=== PATIENT | female | born 1970 | race Caucasian/White ===

== ENCOUNTER 2016-05-24 20:10 | Emergency (ER) | payer MEDICAID ==
[~2016-05-24] VITALS: Ht 157.5 cm; Wt 108.9 kg
[~2016-05-24 20:10] MED LIST: ACHD5005 PO; AZIT250T5 PO; BENZ200C51 PO; CETI10TA17; CODE118S2 PO; CYCL10TA9 PO; DOXY100C42 PO; DULO20CA PO; DULO20CA18; HYDR-1231 PO; HYDR-2890 PO; HYDR-34 PO; HYDR-3454 PO; HYDR-757 PO; HYDR1TAB PO; IBP600T1 PO; KETO-22 PO; MELO7.5T PO; MONT10TA24; NAPR500T3 PO; OMEP20TA2 PO; ONDA-42 SL; ORPH100T PO; ORTHO NOVUM 1/35 PO; OXYC-12 PO; PRD20T PO; PRED20TA PO; TRM50T PO
[2016-05-24] MEDS ORDERED: CETI10TA17 PO (20:28)
[2016-05-24] MEDS ORDERED: FLUT9.9S NS (20:28)
--- NOTE | 2016-05-24 20:48 | ED Headache ---
General Chief Complaint: Head/Cervical Problems Stated Complaint: HEADACHE CHEST PAIN DUE TO COUGH Nursing Triage Note: C/O LATERAL/POSTERIOR HEADACHE RADIATING DOWN NECK SINCE WEDNESDAY. DENIES INJURY. Nursing Sepsis Screen: No Definite Risk Source: patient, spouse Exam Limitations: no limitations History of Present Illness Time seen by provider: 20:48 Initial Comments 46 YO FEMALE PATIENT PRESENTS TO THE ED WITH C/O POSTERIOR/LATERAL HEADACHE RADIATING DOWN THE NECK SINCE WEDNESDAY. DOES C/O PHOTOPHOBIA AND SOUND SENSITIVITY. REPORTS SINUS CONGESTION, SORE THROAT AND COUGH. PATIENT DENIES FEVER, CHILLS, DIZZINESS, N/V/D. Timing/Duration: waxing and waning, other (2-3 DAYS) Severity/Quality: pressure, throbbing Location: occipital, parietal Modifying Factors: worse with exposure to light, worse with other (EXPOSURE TO SOUND) Associated Symptoms: No confusion, No fatigue, No facial pain, No fever/chills , No flushing, No loss of consciousness, No nausea/vomiting, nasal congestion, No numbness in legs/feet, No rash, No sinus infection, stiff neck, vision changes (PHOTOPHOBIA), No weakness Allergies and Home Medications Allergies Coded Allergies: NKANo Known Allergies (Unverified Allergy, Unknown, 11/01/05) Home Medications Cefdinir 300 Mg Capsule, 300 MG PO BID for 10 Days, #20 Ref 0 Prescribed by: FELISA DAVIS on 05/24/16 2310 Cetirizine HCl 10 Mg Tablet, 1 TAB PO UD, #30 (Reported) Fluticasone Propionate 9.9 Ml [place].susp, 9.9 ML NS UD, (Reported) Promethazine HCl/Codeine 118 Ml Syrup, 5 ML PO Q4H PRN for COUGH, #120 Ref 0 Prescribed by: FELISA DAVIS on 05/25/16 0021 Constitutional: No chills, No diaphoresis, No dizziness, No fever, malaise Eyes: See HPI, Denies Blurred Vision, Denies Drainage, Denies Pain, Photophobia , Tunnel Vision, Other ((+) SCATOMAS) Ears, Nose, Mouth, Throat: denies ear pain, denies ear discharge, denies nose pain, denies mouth pain, throat pain, denies throat swelling Respiratory: cough, phlegm, No short of breath, No stridor, No wheezing Cardiovascular: no symptoms reported Gastrointestinal: No abdominal pain, No constipation, No diarrhea, No nausea, No vomiting Genitourinary: no symptoms reported Musculoskeletal: see HPI Skin: no symptoms reported Psychiatric/Neurological: Headache, Denies Numbness, Denies Paresthesia, Denies Tingling, Denies Weakness All Other Systems Reviewed Negative Unless Noted: Yes (Negative except WHERE noted.) Past Ohrmlls-Crueqr-Tvqzag Hx Patient Social History Alcohol Use: Denies Use Recreational Drug Use: No Smoking Status: Never a Smoker 2nd Hand Smoke Exposure: No Recent Foreign Travel: No Contact w/Someone Who Travel: No Recent Infectious Disease Expo: No Recent Hopitalizations: No Immunizations Up To Date Tetanus Booster (TDap): Unknown Date of Influenza Vaccine: Jan 22, 2015 Seasonal Allergies Seasonal Allergies: Yes Surgeries HX Surgeries: Yes (L KNEE) Surgeries: Adenoidectomy, Appendectomy, Orthopedic, Tonsillectomy, Tubal Ligation Respiratory Hx Respiratory Disorders: No Cardiovascular Hx Cardiac Disorders: No (CLEAN HEART CATH IN 2014) Neurological Hx Neurological Disorders: Yes Neurological Disorders: Headaches /Migraines Reproductive System : No Hx Reproductive Disorders: No Sexually Transmitted Disease: No TRANSITION RN History: Tubal Ligation Genitourinary Hx Genitourinary Disorders: No Gastrointestinal Hx Gastrointestinal Disorders: Yes Gastrointestinal Disorders: Gastroesophageal Reflux Musculoskeletal Hx Musculoskeletal Disorders: No Endocrine Hx Endocrine Disorders: No HEENT HX ENT Disorders: No Cancer Hx Cancer: No Psychosocial Hx Psychiatric Problems: Yes Behavioral Health Disorders: Depression Integumentary HX Skin/Integumentary Disorder: No Blood Transfusions Hx Blood Disorders: No Reviewed Nursing Assessment Reviewed/Agree w Nursing PMH: Yes Family Medical History Significant Family History: No Pertinent Family Hx Physical Exam Vital Signs Vital Sign - Last 12Hours 05/24/16 20:29 Temp 99.3 Pulse 73 Resp 18 B/P (MAP) 185/106 Pulse Ox 93 O2 Delivery Room Air Capillary Refill : Less Than 3 Seconds General Appearance: WD/WN, no apparent distress HEENT: PERRL/EOMI, normal ENT inspection, TMs normal, photophobia, pharyngeal erythema, other ((+) NASAL CONGESTION. SINUSES NONTENDER.) Neck: full range of motion, supple, normal inspection, No limited range of motion, tender lateral, No tender midline Cardiovascular: normal peripheral pulses, regular rate, rhythm, no murmur Respiratory: lungs clear, normal breath sounds, no respiratory distress Gastrointestinal: normal bowel sounds, non tender, soft, No distended Back: normal inspection Extremities: normal inspection, normal capillary refill Psychiatric: alert, oriented x 3 Crainal Nerves: normal hearing, normal speech, PERRL Coordination/Gait: normal finger to nose, normal gait, negative Romberg's sign Motor/Sensory: no motor deficit, no sensory deficit, no pronator drift Skin: normal color, warm/dry Progress/Results/Core Measures Results/Orders Lab Results Laboratory Tests Test 05/24/16 23:38 Range/Units White Blood Count 10.3 4.3-11.0 10^3/uL Red Blood Count 5.18 4.35-5.85 10^6/uL Hemoglobin 12.8 11.5-16.0 G/DL Hematocrit 39 35-52 % Mean Corpuscular Volume 75 L 80-99 FL Mean Corpuscular Hemoglobin 25 25-34 PG Mean Corpuscular Hemoglobin Concent 33 32-36 G/DL Red Cell Distribution Width 15.4 H 10.0-14.5 % Platelet Count 301 130-400 10^3/uL Mean Platelet Volume 10.2 7.4-10.4 FL Neutrophils (%) (Auto) 58 42-75 % Lymphocytes (%) (Auto) 29 12-44 % Monocytes (%) (Auto) 9 0-12 % Eosinophils (%) (Auto) 4 0-10 % Basophils (%) (Auto) 1 0-10 % Neutrophils # (Auto) 6.0 1.8-7.8 X 10^3 Lymphocytes # (Auto) 2.9 1.0-4.0 X 10^3 Monocytes # (Auto) 1.0 0.0-1.0 X 10^3 Eosinophils # (Auto) 0.4 H 0.0-0.3 10^3/uL Basophils # (Auto) 0.1 0.0-0.1 10^3/uL Sodium Level 137 135-145 MMOL/L Potassium Level 4.1 3.6-5.0 MMOL/L Chloride Level 108 H 98-107 MMOL/L Carbon Dioxide Level 21 21-32 MMOL/L Anion Gap 8 5-14 MMOL/L Blood Urea Nitrogen 15 7-18 MG/DL Creatinine 0.78 0.60-1.30 MG/DL Estimat Glomerular Filtration Rate > 60 BUN/Creatinine Ratio 19 Glucose Level 98 70-105 MG/DL Calcium Level 9.0 8.5-10.1 MG/DL Total Bilirubin 0.3 0.1-1.0 MG/DL Aspartate Amino Transf (AST/SGOT) 16 5-34 U/L Alanine Aminotransferase (ALT/SGPT) 15 0-55 U/L Alkaline Phosphatase 80 40-136 U/L C-Reactive Protein High Sensitivity 1.95 H 0.00-0.50 MG/DL Total Protein 7.3 6.4-8.2 G/DL Albumin 4.0 3.2-4.5 G/DL Micro Results Microbiology 05/24/16 Influenza Types A,B Antigen (KARL) - Final, Complete My Orders Orders - FELISA DAVIS Ketorolac Injection (Toradol Injection) (05/24/16 20:59) Orphenadrine Injection (Norflex Injectio (05/24/16 20:59) Diphenhydramine Tablet (Benadryl Tablet) (05/24/16 21:00) Ondansetron Oral Dissolve Tab (Zofran (05/24/16 20:59) Ct Head Wo (05/24/16 22:17) Hydrocodone/Apap 10/325 Tablet (Lortab 1 (05/24/16 22:17) Cbc With Automated Diff (05/24/16 23:20) Comprehensive Metabolic Panel (05/24/16 23:20) Hs C Reactive Protein (05/24/16 23:20) Saline Lock/Iv-Start (05/24/16 23:20) Fentanyl Injection (Sublimaze Injection (05/24/16 23:20) Ns Iv 1000 Ml (Sodium Chloride 0.9%) (05/24/16 23:20) Methylprednisolone Sod Succ (Solu-Medrol (05/24/16 23:20) Medications Given in ED Current Medications Medications Dose Ordered Sig/Kindra Route Start Time Stop Time Status Last Admin Dose Admin Diphenhydramine HCl 25 mg ONCE ONCE PO 05/24/16 21:00 05/24/16 21:01 DC 05/24/16 21:18 25 MG Sodium Chloride 1,000 ml @ 0 mls/hr Q0M ONCE IV 05/24/16 23:20 05/24/16 23:24 DC 05/24/16 23:32 0 MLS/HR Vital Signs/I&O Vital Sign - Last 12Hours 05/24/16 20:29 Temp 99.3 Pulse 73 Resp 18 B/P (MAP) 185/106 Pulse Ox 93 O2 Delivery Room Air Blood Pressure Mean: 132 Diagnostic Imaging Diagonstic Imaging: Xray Plain Films/CT/US/NM/MRI: chest Comments Heart size and pulmonary vascularity are normal. Lungs are clear. There are no effusions or pneumothoraces. IMPRESSION: Negative chest Dictated by: Dictated on workstation # [id number] Reviewed: Reviewed by Me (radiology report reviewed by me) Diagonstic Imaging: CT Plain Films/CT/US/NM/MRI: head Comments NO MASS EFFECT, ICH, OR EDEMA. NO EVIDENCE OF ACUTE CORTICAL STROKE. AREAS OF MILD MUCOSAL THICKENING IN THE PARANASAL SINUSES. Reviewed: Other ([facility] REPORT REVIEWED BY ME.) Departure Communication Progress Notes PATIENT SEEN AND EVALUATED. PATIENT WAS GIVEN TORADOL, NORFLEX, BENADRYL, ZOFRAN, AND HYDROCODONE WITHOUT IMPROVEMENT IN SYMPTOMS. CT SCAN OF THE HEAD, CXR, AND INFLUENZA NEGATIVE. PATIENT CONTINUED TO C/O A 9/10 HEADACHE. IV WAS THEN STARTED AND PATIENT WAS GIVEN 1 L NS AND FENTANYL. PATIENT REPORTS PAIN IMPROVED TO A 1/10. OVERALL FEELS MUCH BETTER. PROCEED WITH [facility] TO HOME. ALL RETURN PRECAUTIONS WERE DISCUSSED WITH THE PATIENT DESCRIBED IN THE [facility] INSTRUCTIONS OF THIS REPORT. PATIENT VOICES UNDERSTANDING AND AGREES WITH THE TREATMENT PLAN. Impression Impression: Primary Impression: Migraine Qualified Codes: G43.909 - Migraine, unspecified, not intractable, without status migrainosus Additional Impression: Sinusitis Qualified Codes: J01.90 - Acute sinusitis, unspecified Disposition: HOME, SELF-CARE Condition: Improved Departure-Patient Inst. Decision time for Depature: 00:22 Referrals: АННА CONSTANTINO (PCP) Primary Care Physician Patient Instructions: Migraine Headache (DC), Sinusitis, Adult (DC) Add. Discharge Instructions: All discharge instructions reviewed with patient and/or family. Voiced understanding. Medications as instructed. Tylenol Extra Strength over-the- counter as directed for pain. Ibuprofen 800 mg by mouth every 8 hours as needed for pain. Push fluids. Cool humidifier. Mmfk-gyz-dumqyir decongestants and antihistamines as needed for symptoms. Rest. Follow-up with your primary care physician for recheck in the next 2-3 days, call for appointment time tomorrow morning. Return to the emergency department for worsened pain, fever, headache, dizziness, changes in behavior, changes in vision, shortness of air, numbness, weakness, decreased urination, or any other concerns. Scripts Promethazine HCl/Codeine (Promethazine-Codeine Syrup) 118 Ml Syrup 5 ML PO Q4H Y for COUGH, #120 ML 0 Refills Prov: FELISA DAVIS 05/25/16 Cefdinir (Cefdinir) 300 Mg Capsule 300 MG PO BID for 10 Days, #20 CAP 0 Refills Prov: FELISA DAVIS 05/24/16 FELISA DAVIS May 24, 2016 20:48
[2016-05-24] MEDS ORDERED: KETOROLAC 60 MG/2 ML VIAL IM STA (20:59)
[2016-05-24] MEDS ORDERED: ORPHENADRINE 60 MG/2 ML (NORFLEX) AMP IM STA (20:59)
[2016-05-24] MEDS ORDERED: ONDANSETRON 4 MG (ZOFRAN) ORAL DISSOLVE TAB SL STA (20:59)
[2016-05-24] MEDS ORDERED: diphenhydrAMINE 25 MG TAB (BENADRYL) PO ONE (21:00)
--- NOTE | 2016-05-24 21:10 | Diagnostic Imaging Report ---
INDICATION: Cough and congestion, asymmetric chest pain x2 days PA and lateral chest Heart size and pulmonary vascularity are normal. Lungs are clear. There are no effusions or pneumothoraces. IMPRESSION: Negative chest Dictated by: Dictated on workstation # [id number]
[2016-05-24] MEDS ORDERED: HYDROcodone/APAP 10 MG/325 MG (LORTAB) TAB PO STA (22:17)
[2016-05-24] MEDS ORDERED: CEFD300C3 PO (23:10)
[2016-05-24] MEDS ORDERED: NS IV 1000 ML 1,000 ML IV ONE (23:20)
[2016-05-24] MEDS ORDERED: fentaNYL INJECTION 100 MCG/2 ML AMP IVP STA (23:20)
[2016-05-24] MEDS ORDERED: methylPREDNISolone 125 MG (Solu-MEDROL) VIAL IV STA (23:20)
[2016-05-24 23:41] LABS: BASOPHILS # (AUTO) 0.1 10^3/uL (0.0-0.1); BASOPHILS % (AUTO) 1 % (0-10); EOSINOPHILS # (AUTO) 0.4 10^3/uL (0.0-0.3); EOSINOPHILS % (AUTO) 4 % (0-10); LYMPHOCYTES # (AUTO) 2.9 X 10^3 (1.0-4.0); LYMPHOCYTES % (AUTO) 29 % (12-44); MEAN CORPUSCULAR HEMOGLOBIN 25 PG (25-34); MEAN CORPUSCULAR HGB CONC 33 G/DL (32-36); MEAN CORPUSCULAR VOLUME 75 FL (80-99); MEAN PLATELET VOLUME 10.2 FL (7.4-10.4); MONOCYTES % (AUTO) 9 % (0-12); NEUTROPHILS % (AUTO) 58 % (42-75); PLATELET COUNT 301 10^3/uL (130-400); RED BLOOD COUNT 5.18 10^6/uL (4.35-5.85); RED CELL DISTRIBUTION WIDTH 15.4 % (10.0-14.5); WHITE BLOOD COUNT 10.3 10^3/uL (4.3-11.0)
[2016-05-25 00:01] LABS: ALANINE AMINOTRANSFERASE 15 U/L (0-55); ANION GAP 8 MMOL/L (5-14); ASPARTATE AMINO TRANSFERASE 16 U/L (5-34); BILIRUBIN,TOTAL 0.3 MG/DL (0.1-1.0); BLOOD UREA NITROGEN 15 MG/DL (7-18); BUN/CREATININE RATIO 19; CARBON DIOXIDE 21 MMOL/L (21-32); CHLORIDE 108 MMOL/L (98-107); CREATININE SERUM 0.78 MG/DL (0.60-1.30); GFR ESTIMATED > 60; GLUCOSE 98 MG/DL (70-105); POTASSIUM 4.1 MMOL/L (3.6-5.0); SODIUM 137 MMOL/L (135-145); TOTAL PROTEIN 7.3 G/DL (6.4-8.2); hs C REACTIVE PROTEIN 1.95 MG/DL (0.00-0.50)
[2016-05-25] MEDS ORDERED: CODE118S2 PO (00:21)
[2016-05-25 00:31] VITALS: BP 132/93
--- NOTE | 2016-05-25 05:53 | Diagnostic Imaging Report ---
PROCEDURE: CT head without contrast. TECHNIQUE: Multiple contiguous axial images were obtained through the brain without the use of intravenous contrast. INDICATION: Headache. COMPARISON: 05/21/2015 FINDINGS: There is no midline shift or mass effect. The ventricles and sulci are unremarkable. No evidence for acute intracranial hemorrhage, abnormal extra-axial fluid collections or cerebral edema is present. The basilar cisterns are unremarkable. There is mild mucosal thickening in the paranasal sinuses.. The bony calvarium is intact. IMPRESSION: Negative appearing noncontrast CT of the head. Dictated by: Dictated on workstation # [id number]
--- OUTSIDE RECORDS SUMMARY | 2016-06-28 04:28 | XMS REPORT ---
Author Author АННА CONSTANTINO Organization [employer] Address Unknown Phone Unavailable Care Team Providers Care Guyline Operator Name Role Phone АННА CONSTANTINO CP Unavailable Allergies No Known Allergies Problems Problem Type Condition Code Onset Dates Condition Status Problem Hypertension 401.9 Active Problem Disturbance of skin sensation 782.0 Active Problem Reactive airway disease 493.90 Active Problem Acute upper respiratory infections of unspecified site 465.9 Active Problem Esophageal reflux 530.81 Active Medications No Known Medications Results No Known Results Summary Purpose [employer] Submission
--- OUTSIDE RECORDS SUMMARY | 2016-06-28 04:28 | XMS REPORT ---
Author Author АННА CONSTANTINO [facility] [employer] Address Unknown Phone Unavailable Care Team Providers Care Tuyere Fitter Name Role Phone АННА CONSTANTINO CP Unavailable Allergies, Adverse Reactions, Alerts Substance Reaction Event Type N.K.D.A. Info Not Available Non Drug Allergy Problems Problem Type Condition ICD-9 Code Onset Dates Condition Status Problem Hypertension 401.9 Active Problem Disturbance of skin sensation 782.0 Active Problem Reactive airway disease 493.90 Active Assessment Reactive airway disease 493.90 Active Assessment Snoring 786.09 Active Problem Acute upper respiratory infections of unspecified site 465.9 Active Problem Esophageal reflux 530.81 Active Medications Medication Code System Code Instructions Start Date End Date Status Dosage ZyrTEC [facility] [address]-89 10 MG Orally Once a day Oct 18, 2014 Feb 15, 2015 1 tablet as needed Promethazine-Codeine [facility] [address]-75 6.25-10 mg/5 mL Feb 07, 2014 5 mL by Oral route every 4 hours for 5 day(s) Singulair [facility] [address]-57 10 MG Orally Once a day at PM Oct 18, 2014 1 tablet in the evening Symbicort [facility] [address]-11 160-4.5 MCG/ACT Inhalation Twice a day Oct 18, 2014 Feb 15, 2015 1 puffs Tessalon Perles [facility] [address]-60 100 MG Orally Three times a day 1 capsule as needed Doxycycline Monohydrate [facility] [address]-44 100 MG Orally every 12 hrs for 10 DAYS 1 capsule Cymbalta [facility] [address]-30 20 MG Orally Twice a day 1 capsule Procedures Procedure Coding System Code Date Office Visit, Est Pt., Level 3 CPT-4 89369 Oct 18, 2014 SLEEP STUDY, UNATTENDED CPT-4 84883 Oct 18, 2014 Vital Signs Date/Time: Oct 18, 2014 Temperature 97.9 F Weight 232.6 lbs Height 62 in BMI 42.54 Index Blood Pressure Diastolic 78 mmHg Blood Pressure Systolic 130 mmHg Cardiac Monitoring Heart Rate 84 bpm Results No Known Results Summary Purpose [employer] Submission
--- OUTSIDE RECORDS SUMMARY | 2016-06-28 04:28 | XMS REPORT ---
Author Author АННА CONSTANTINO Organization [employer] Address Unknown Phone Unavailable Care Team Providers Care Global Compensation Manager Name Role Phone АННА CONSTANTINO CP Unavailable [...]
--- OUTSIDE RECORDS SUMMARY | 2016-06-28 04:28 | XMS REPORT ---
Author Author RACHELLE JOHNSON Organization [facility] Address [address] [place] [address] Care Team Providers Care Java Application Developer Name Role Phone ALEX RACHELLE Unavailable PROBLEMS Type Condition ICD9-CM Code [id number] Code Onset Dates Condition Status SNOMED Code Problem Reactive airway disease 493.90 Active 060546171005 Problem Hypertension 401.9 Active 33188933 Problem Esophageal reflux 530.81 Active 352221723 Assessment Strain of right Achilles tendon, initial encounter S86.011A Oct, Active 01500928 Problem Disturbance of skin sensation 782.0 Active 992931327 Problem Acute upper respiratory infections of unspecified site 465.9 Active [id number] ALLERGIES Substance Reaction Event Type Date Status N.K.D.A. Unknown Non Drug Allergy Oct, Unknown SOCIAL HISTORY No smoking Hx information available PLAN OF CARE VITAL SIGNS Height 62 in 2015-11-05 Weight 236.6 lbs 2015-11-05 Heart Rate 72 bpm 2015-11-05 Respiratory Rate 18 2015-11-05 BMI 43.27 kg/m2 2015-11-05 Blood pressure systolic 128 mmHg 2015-11-05 Blood pressure diastolic 90 mmHg 2015-11-05 MEDICATIONS Medication Instructions Dosage Frequency Start Date End Date Duration Status Ibuprofen 800 MG Orally every 8 hours, PRN 1 tablet Oct,Oct 10 days Active RESULTS Name Result Date Reference Range Xray : Ankle, Right 3 views (IN HOUSE) 2015-11-05 PROCEDURES Procedure Date Ordered Related Diagnosis Body Site X-RAY EXAM OF ANKLE Nov 05, 2015 Office Visit, Est Pt., Level 3 Nov 05, 2015 IMMUNIZATIONS No Known Immunizations
--- OUTSIDE RECORDS SUMMARY | 2016-06-28 04:28 | XMS REPORT ---
Author Author НАНА CONSTANTINO Organization [employer] Address Unknown Phone Unavailable Care Team Providers Care Cloth Grader Supervisor Name Role Phone АННА CONSTANTINO CP Unavailable Allergies No Known Allergies Problems Problem Type Condition ICD-9 Code Onset Dates Condition Status Problem Hypertension 401.9 Active Problem Disturbance of skin sensation 782.0 Active Problem Reactive airway disease 493.90 Active Problem Acute upper respiratory infections of unspecified site 465.9 Active Problem Esophageal reflux 530.81 Active Medications Medication Code System Code Instructions Start Date End Date Status Dosage Symbicort [facility] [address]-51 80-4.5 MCG/ACT Inhalation 2 times a day Oct 2 puffs Results No Known Results Summary Purpose [employer] Submission
--- OUTSIDE RECORDS SUMMARY | 2016-06-28 04:28 | XMS REPORT | Continuity of Care Document ---
Author Author [facility] Address Unknown Phone Unavailable Allergies Active Description Code Type Severity Reaction Onset Reported/Identified Relationship to Patient Clinical Status Yes NKANo Known Allergies NKA Miscellaneous Allergy Unknown N/ A 11/01/2005 Medications Problems Date Dx Coded Attending Type Code Diagnosis Diagnosed By 01/17/2010 Ot 844.9 01/17/2010 Ot 921.1 01/17/2010 Ot 959.7 01/17/2010 Ot E000.8 01/17/2010 Ot E849.0 01/17/2010 Ot E888.9 05/20/2010 Ot 786.52 05/20/2010 Ot 786.59 07/13/2010 Ot 521.00 07/13/2010 Ot 525.9 09/10/2010 Ot 844.9 09/10/2010 Ot 959.7 09/10/2010 Ot E000.8 09/10/2010 Ot E001.1 09/10/2010 Ot E849.6 09/10/2010 Ot E927.0 11/13/2010 GOPAL YADAV APRN R 623.5 LEUKORRHEA NOT SPECIFIED INFECTIVE 11/13/2010 GOPAL YADAV APRN R V72.31 LANDSCAPE FOREMAN EXAM, ROUTINE 11/13/2010 VIJAYA DIAZ APRN 623.5 LEUKORRHEA NOT SPECIFIED INFECTIVE 11/13/2010 VIJAYA DIAZ APRN V72.31 LANDSCAPE FOREMAN EXAM, ROUTINE 11/13/2010 АННА CONSTANTINO APRN S 623.5 LEUKORRHEA NOT SPECIFIED INFECTIVE 11/13/2010 АННА CONSTANTINO APRN S V72.31 LANDSCAPE FOREMAN EXAM, ROUTINE 11/13/2010 АННА CONSTANTINO APRN S 623.5 LEUKORRHEA NOT SPECIFIED INFECTIVE 11/13/2010 АННА CONSTANTINO APRN S V72.31 LANDSCAPE FOREMAN EXAM, ROUTINE 11/19/2010 GOPAL YADAV APRN R 278.01 OBESITY MORBID 11/19/2010 YADAV SHOELACE TIPPING MACHINE OPERATOR, GOPAL R 626.8 DYSFUNCTIONAL UTERINE BLEEDING 11/19/2010 EMILY COSTA VIJAYA T 278.01 OBESITY MORBID 11/19/2010 VIJAYA DIAZ APRN T 626.8 DYSFUNCTIONAL UTERINE BLEEDING 11/19/2010 DOUGIE ANNN, АННА S 278.01 OBESITY MORBID 11/19/2010 DOUGIE ANNN, АННА S 626.8 DYSFUNCTIONAL UTERINE BLEEDING 11/19/2010 DOUGIE SHOELACE TIPPING MACHINE OPERATOR, АННА S 278.01 OBESITY MORBID 11/19/2010 DOUGIE ANNN, АННА S 626.8 DYSFUNCTIONAL UTERINE BLEEDING 05/08/2011 Ot 784.0 05/08/2011 Ot 847.0 05/08/2011 Ot 959.09 05/08/2011 Ot E000.8 05/08/2011 Ot E812.1 08/02/2013 GOPAL YADAV APRN R 782.0 DISTURBANCE OF SKIN SENSATION 08/02/2013 EMILY COSTA VIJAYA T 782.0 DISTURBANCE OF SKIN SENSATION 08/02/2013 DOUGIE SHOELACE TIPPING MACHINE OPERATOR, АННА S 782.0 DISTURBANCE OF SKIN SENSATION 08/02/2013 DOUGIE SHOELACE TIPPING MACHINE OPERATOR, АННА S 782.0 DISTURBANCE OF SKIN SENSATION 08/15/2013 ALIYAH YOANDY HERNANDEZA K Ot 625.3 08/15/2013 ALIYAH HERNANDEZ, GOPAL K Ot 626.8 02/07/2014 EMILY JULISSAVIJAYA T 465.9 UPPER RESPIRATORY INFECTION 02/07/2014 DOUGIE SHOELACE TIPPING MACHINE OPERATOR, АННА S 465.9 UPPER RESPIRATORY INFECTION 02/07/2014 DOUGIE SHOELACE TIPPING MACHINE OPERATOR, АННА S 465.9 UPPER RESPIRATORY INFECTION 04/16/2014 DOUGIE ANNN, АННА S 530.81 GERD 04/16/2014 DOUGIE SHOELACE TIPPING MACHINE OPERATOR, АННА S 530.81 GERD 06/12/2014 DOUGIE COSTA, АННА S 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 06/12/2014 DOUGIE COSTA, АННА S 719.46 PAIN- KNEE 06/14/2014 Ot 626.8 06/14/2014 DEEPIKA PIERRE MD Ot 786.50 06/14/2014 DEEPIKA PIERRE MD Ot 786.59 06/14/2014 Ot 626.8 06/20/2014 Ot 626.8 06/27/2014 MELISSA RICHMOND, RAFAEL Gutierrez Ot 278.01 06/27/2014 MELISSA RICHMOND, RAFAEL Gutierrez Ot 338.4 06/27/2014 MELISSA RICHMOND, RAFAEL Gutierrez Ot 346.90 06/27/2014 MELISSA RICHMOND, RAFAEL Gutierrez Ot 401.9 06/27/2014 MELISSA RICHMOND, RAFAEL Gutierrez Ot 414.01 06/27/2014 MELISSA RICHMOND, RAFAEL Gutierrez Ot 786.50 06/27/2014 MELISSA RICHMOND, RAFAEL Gutierrez Ot 794.30 06/27/2014 MELISSA RICHMOND, RAFAEL Gutierrez Ot V58.69 06/27/2014 MELISSA RICHMOND, RAFAEL Gutierrez Ot V85.41 07/21/2014 MELISSA RICHMOND, RAFAEL Gutierrez Ot 278.01 07/21/2014 MELISSA RICHMOND, RAFAEL Gutierrez Ot 346.70 07/21/2014 MELISSA RICHMOND, RAFAEL Gutierrez Ot 786.50 10/02/2014 NORIS ROBISON MD Ot 465.9 10/02/2014 NORIS ROBISON MD Ot 786.2 10/02/2014 Ot 626.8 10/02/2014 MELISSA RICHMOND, RAFAEL Gutierrez Ot 278.01 10/02/2014 MELISSA RICHMOND, RAFAEL Gutierrez Ot 346.70 10/02/2014 MELISSA RICHMOND, RAFAEL Gutierrez Ot 786.50 10/08/2014 Ot 626.8 10/08/2014 MELISSA RICHMOND, RAFAEL Gutierrez Ot 278.01 10/08/2014 RAFAEL TORRES MD Ot 346.70 10/08/2014 RAFAEL TORRES MD Ot 786.50 10/17/2014 GOPAL LY DO Ot 466.0 10/17/2014 GOPAL LY DO Ot 786.2 12/07/2014 Ot T63.301A 12/07/2014 Ot X58.XXXA 12/07/2014 Ot Y92.69 12/07/2014 Ot Y99.0 12/07/2014 Ot Z23 12/10/2014 MOY TERRY APRN Ot M79.632 02/18/2015 GOPAL LY DO Ot S30.0XXA 02/18/2015 GOPAL LY DO Ot S70.01XA 02/18/2015 GOPAL LY DO Ot W10.9XXA 02/18/2015 ALIYAHGOPAL Luevano DO Ot Y92.009 02/18/2015 ALIYAH HERNANDEZ, GOPAL Covarrubias Ot Y99.8 05/22/2015 FELISA ORELLANA Ot J06.9 ACUTE UPPER RESPIRATORY INFECTION, UNSPE 05/22/2015 FELISA ORELLANA Ot R51 HEADACHE 05/22/2015 FELISA ORELLANA Ot J06.9 05/22/2015 FELISA ORELLANA Ot R51 12/08/2015 BRIANA RICHMOND, LUPILLO De La Paz Ot M79.661 PAIN IN RIGHT LOWER LEG 12/10/2015 LUPILLO WARREN MD Ot M79.661 PAIN IN RIGHT LOWER LEG 12/12/2015 BRIANA RICHMOND, LUPILLO S Ot M79.661 PAIN IN RIGHT LOWER LEG 01/10/2016 АННА CONSTANTINO FILM MAKER Ot Z12.31 ENCNTR SCREEN MAMMOGRAM FOR MALIGNANT NE 01/23/2016 АННА CONSTANTINO FILM MAKER Ot Z12.31 ENCNTR SCREEN MAMMOGRAM FOR MALIGNANT NE 01/30/2016 АННА CONSTANTINO FILM MAKER Ot R92.8 OTH ABN AND INCONCLUSIVE FINDINGS ON DX 01/30/2016 DOUGIEANAYA BREENA FILM MAKER Ot R92.8 OTH ABN AND INCONCLUSIVE FINDINGS ON DX 02/20/2016 DOUGIEANAYA BREENA FILM MAKER Ot R92.8 OTH ABN AND INCONCLUSIVE FINDINGS ON DX 05/25/2016 FELISA ORELLANA Ot G43.909 MIGRAINE, UNSP, NOT INTRACTABLE, WITHOUT 05/25/2016 FELISA ORELLANA Ot J01.90 ACUTE SINUSITIS, UNSPECIFIED 05/25/2016 FELISA ORELLANA Ot R51 HEADACHE 05/26/2016 FELISA ORELLANA Ot G43.909 MIGRAINE, UNSP, NOT INTRACTABLE, WITHOUT 05/26/2016 FELISA ORELLANA Ot J01.90 ACUTE SINUSITIS, UNSPECIFIED 05/26/2016 FELISA ORELLANA Ot R51 HEADACHE Procedures Code Description Performed By [facility]formed [facility] 08/02/2013 91803 INFLUENZA A & B (IN-HOUSE) 02/07/2014 80831 XRAY KNEE LEFT 3 VIEWS 06/15/2014 Results Test Result Range Complete blood count (CBC) with automated white blood cell (WBC) differential - 12/08/15 10:16 Blood leukocytes automated count (number/volume) 9.8 10*3/ uL 4.3-11.0 Blood erythrocytes automated count (number/volume) 5.07 10*6 /uL 4.35-5.85 Venous blood hemoglobin measurement (mass/volume) 12.6 g/dL 11.5-16.0 Blood hematocrit (volume fraction) 38 % 35-52 Automated erythrocyte mean corpuscular volume 75 [foz_us] 80-99 Automated erythrocyte mean corpuscular hemoglobin (mass per erythrocyte) 25 pg 25-34 Automated erythrocyte mean corpuscular hemoglobin concentration measurement ( mass/volume) 33 g/dL 32-36 Automated erythrocyte distribution width ratio 15.2 % 10.0-14.5 Automated blood platelet count (count/volume) 314 10*3/uL 130-400 Automated blood platelet mean volume measurement 10.8 [foz_ us] 7.4-10.4 Automated blood neutrophils/100 leukocytes 58 % 42-75 Automated blood lymphocytes/100 leukocytes 30 % 12-44 Blood monocytes/100 leukocytes 8 % 0-12 Automated blood eosinophils/100 leukocytes 4 % 0-10 Automated blood basophils/100 leukocytes 1 % 0-10 Blood neutrophils automated count (number/volume) 5.7 10*3 1.8-7.8 Blood lymphocytes automated count (number/volume) 2.9 10*3 1.0-4.0 Blood monocytes automated count (number/volume) 0.8 10*3 0.0-1.0 Automated eosinophil count 0.3 10*3/uL 0.0-0.3 Automated blood basophil count (count/volume) 0.1 10*3/uL 0.0-0.1 PT panel in platelet poor plasma by coagulation assay - 12/08/15 10:16 Prothrombin time (PT) in platelet poor plasma by coagulation assay 13.3 s 12.2-14.7 INR in platelet poor plasma or blood by coagulation assay 1.0 0.8-1.4 Influenza virus A and B antigen detection - 05/24/16 20:35 FLU RESULT NEGATIVE FOR INFLUENZA A AND B ANTIGENS BY [facility] Complete blood count (CBC) with automated white blood cell (WBC) differential - 05/24/16 23:38 Blood leukocytes automated count (number/volume) 10.3 10*3/ uL 4.3-11.0 Blood erythrocytes automated count (number/volume) 5.18 10*6 /uL 4.35-5.85 Venous blood hemoglobin measurement (mass/volume) 12.8 g/dL 11.5-16.0 Blood hematocrit (volume fraction) 39 % 35-52 Automated erythrocyte mean corpuscular volume 75 [foz_us] 80-99 Automated erythrocyte mean corpuscular hemoglobin (mass per erythrocyte) 25 pg 25-34 Automated erythrocyte mean corpuscular hemoglobin concentration measurement ( mass/volume) 33 g/dL 32-36 Automated erythrocyte distribution width ratio 15.4 % 10.0-14.5 Automated blood platelet count (count/volume) 301 10*3/uL 130-400 Automated blood platelet mean volume measurement 10.2 [foz_ us] 7.4-10.4 Automated blood neutrophils/100 leukocytes 58 % 42-75 Automated blood lymphocytes/100 leukocytes 29 % 12-44 Blood monocytes/100 leukocytes 9 % 0-12 Automated blood eosinophils/100 leukocytes 4 % 0-10 Automated blood basophils/100 leukocytes 1 % 0-10 Blood neutrophils automated count (number/volume) 6.0 10*3 1.8-7.8 Blood lymphocytes automated count (number/volume) 2.9 10*3 1.0-4.0 Blood monocytes automated count (number/volume) 1.0 10*3 0.0-1.0 Automated eosinophil count 0.4 10*3/uL 0.0-0.3 Automated blood basophil count (count/volume) 0.1 10*3/uL 0.0-0.1 Comprehensive metabolic panel - 05/24/16 23:38 Serum or plasma sodium measurement (moles/volume) 137 mmol/ L 135-145 Serum or plasma potassium measurement (moles/volume) 4.1 mmol/L 3.6-5.0 Serum or plasma chloride measurement (moles/volume) 108 mmol /L 98-107 Carbon dioxide 21 mmol/L 21-32 Serum or plasma anion gap determination (moles/volume) 8 mmol/L 5-14 Serum or plasma urea nitrogen measurement (mass/volume) 15 mg/dL 7-18 Serum or plasma creatinine measurement (mass/volume) 0.78 mg /dL 0.60-1.30 Serum or plasma urea nitrogen/creatinine mass ratio 19 NRG Serum or plasma creatinine measurement with calculation of estimated glomerular filtration rate > NRG Serum or plasma glucose measurement (mass/volume) 98 mg/dL 70-105 Serum or plasma calcium measurement (mass/volume) 9.0 mg/dL 8.5-10.1 Serum or plasma total bilirubin measurement (mass/volume) 0.3 mg/dL 0.1-1.0 Serum or plasma alkaline phosphatase measurement (enzymatic activity/volume) 80 U/L 40-136 Serum or plasma aspartate aminotransferase measurement (enzymatic activity/ volume) 16 U/L 5-34 Serum or plasma alanine aminotransferase measurement (enzymatic activity/volume ) 15 U/L 0-55 Serum or plasma protein measurement (mass/volume) 7.3 g/dL 6.4-8.2 Serum or plasma albumin measurement (mass/volume) 4.0 g/dL 3.2-4.5 Serum or plasma C reactive protein measurement (mass/volume) - 05/24/16 23:38 Serum or plasma C reactive protein measurement (mass/volume) 1.95 mg/dL 0.00-0.50 Encounters ACCT No. Visit Date/Time Discharge Status Pt. Type Provider Facility Loc./Unit Complaint [id number] 06/12/2014 08:41:00 06/12/2014 23: 59:59 CLS Outpatient АННА CONSTANTINO APRN [id number] 04/16/2014 11:48:00 04/16/2014 23: 59:59 CLS Outpatient АННА CONSTANTINO APRN [id number] 02/07/2014 18:11:00 02/07/2014 23: 59:59 CLS Outpatient VIJAYA DIAZ APRN [id number] 08/02/2013 12:12:00 08/02/2013 23: 59:59 CLS Outpatient GOPAL YADAV APRN
--- OUTSIDE RECORDS SUMMARY | 2016-06-28 04:28 | XMS REPORT ---
Author Author ALYSSA LEMUS [facility] eClinicalWorks Address Unknown Phone Unavailable Care Team Providers Care Customer Manager Name Role Phone ALYSSA LEMUS CP Unavailable Allergies, Adverse Reactions, Alerts Substance Reaction Event Type N.K.D.A. Info Not Available Non Drug Allergy Problems Problem Type Condition ICD-9 Code Onset Dates Condition Status Problem Hypertension 401.9 Active Problem Disturbance of skin sensation 782.0 Active Problem Reactive airway disease 493.90 Active Assessment Bronchiolitis 466.19 Active Problem Acute upper respiratory infections of unspecified site 465.9 Active Problem Esophageal reflux 530.81 Active Medications Medication Code System Code Instructions Start Date End Date Status Dosage Levaquin [facility] [address]-69 500 MG Orally Once a day Nov 01, 2014Oct 1 tablet PredniSONE [facility] [address]-24 10 MG Orally Twice a day Nov 01, 2014 Nov 08, 2014 1 tablet with food or milk ProAir HFA [facility] [address]-65 108 (90 Base) MCG/ACT Inhalation 3 times a day Nov 01, 2014 2 puffs as needed Singulair [facility] [address]-01 10 MG Orally Once a day at PM Oct 18, 2014 1 tablet in the evening Symbicort [facility] [address]-87 80-4.5 MCG/ACT Inhalation 2 times a day Oct 2 puffs ZyrTEC [facility] [address]-81 10 MG Orally Once a day Oct 18, 2014 Feb 15, 2015 1 tablet as needed Cymbalta [facility] [address]-59 20 MG Orally Twice a day 1 capsule Procedures Procedure Coding System Code Date COMPLETE CBC W/AUTO DIFF WBC CPT-4 72729 Nov 01, 2014 MYCOPLASMA ANTIBODY CPT-4 55775 Nov 01, 2014 MEASURE BLOOD OXYGEN LEVEL CPT-4 33581 Nov 01, 2014 VENIPUNCT, ROUTINE* CPT-4 61073 Nov 01, 2014 CHEST X-RAY CPT-4 03377 Nov 01, 2014 Office Visit, Est Pt., Level 4 CPT-4 08929 Nov 01, 2014 Vital Signs Date/Time: Nov 01, 2014 Temperature 97.1 F Weight 235.1 lbs Height 62 in Oximetry 100 % Blood Pressure Diastolic 80 mmHg Blood Pressure Systolic 128 mmHg Cardiac Monitoring Heart Rate 80 bpm BMI 43.00 Index Results Name Result Date Reference Range Unit Abnormality Flag ROUTINE VENIPUNCTURE Summary Purpose eClinicalWorks Submission
--- OUTSIDE RECORDS SUMMARY | 2016-06-28 04:28 | XMS REPORT ---
Author Author АННА CONSTANTINO Organization [employer] Address Unknown Phone Unavailable Care Team Providers Care Test Pilot Name Role Phone АННА CONSTANTION CP Unavailable Allergies No Known Allergies Problems Problem Type Condition Code Onset Dates Condition Status Problem Reactive airway disease 493.90 Active Problem Hypertension 401.9 Active Problem Abnormal mammogram of both breasts R92.8 Active Problem Esophageal reflux 530.81 Active Assessment Abnormal mammogram of both breasts R92.8 Active Problem Disturbance of skin sensation 782.0 Active Problem Acute upper respiratory infections of unspecified site 465.9 Active Medications No Known Medications Results No Known Results Summary Purpose eClinicalWorks Submission
--- OUTSIDE RECORDS SUMMARY | 2016-06-28 04:28 | XMS REPORT ---
Author Author АННА CONSTANTINO Organization [employer] Address Unknown Phone Unavailable Care Team Providers Care Grinder Operator Name Role Phone АННА CONSTANTINO CP [...] Instructions Start Date End Date Status Dosage ProAir HFA [facility] [address]-60 108 (90 Base) MCG/ACT Inhalation 3 times a day Nov 01, 2014 2 puffs as needed Results No Known Results Summary Purpose eClinicalWorks Submission
--- OUTSIDE RECORDS SUMMARY | 2016-06-28 04:28 | XMS REPORT ---
Author Author АННА CONSTANTINO Organization [employer] Address Unknown Phone Unavailable Care Team Providers Care Hospice Aide Name Role Phone АННА CONSTANTINO CP Unavailable [...] Start Date End Date Status Dosage Symbicort [facility] [address]-27 80-4.5 MCG/ACT Inhalation Once a day Oct 24, 2014 2 puffs Results No Known Results Summary Purpose eClinicalWorks Submission
--- OUTSIDE RECORDS SUMMARY | 2016-06-28 04:29 | XMS REPORT ---
Author Author NIALL SHEPPARD Organization [employer] Address Unknown Phone Unavailable Care Team Providers Care Boat Driver Name Role Phone NIALL SHEPPARD CP Unavailable Allergies, Adverse Reactions, Alerts Substance Reaction Event Type N.K.D.A. Info Not Available Non Drug Allergy Problems Problem Type Condition Code Onset Dates Condition Status Problem Hypertension 401.9 Active Problem Disturbance of skin sensation 782.0 Active Problem Reactive airway disease 493.90 Active Assessment Sore throat J02.9 Active Assessment Acute sinusitis J01.90 Active Problem Acute upper respiratory infections of unspecified site 465.9 Active Problem Esophageal reflux 530.81 Active Medications Medication Code System Code Instructions Start Date End Date Status Dosage Zyrtec Allergy [facility] [address]-72 10 mg Orally Once a day June 14, 2015 June 28, 2015 1 tablet as needed Procedures Procedure Coding System Code Date Office Visit, Est Pt., Level 3 CPT-4 68844 June 14, 2015 STREP A ASSAY W/OPTIC CPT-4 05816 June 14, 2015 Vital Signs Date/Time: June 14, 2015 Temperature 99.4 F Weight 235 lbs Height 65 in BMI 39.10 Index Blood Pressure Diastolic 84 mmHg Blood Pressure Systolic 118 mmHg Cardiac Monitoring Heart Rate 78 bpm Results Name Result Date Reference Range Unit Abnormality Flag STREP A (IN HOUSE) ----STREP A Negative [id number] ----Control + [id number] ----Lot # [id number] ----Exp date 20150614 Summary Purpose eClinicalWorks Submission
--- OUTSIDE RECORDS SUMMARY | 2016-06-28 04:29 | XMS REPORT ---
Author Author АННА CONSTANTINO [facility] eClinicalWorks Address Unknown Phone Unavailable Care Team Providers Care Face Burler Name Role Phone АННА CONSTANTINO CP Unavailable Allergies, Adverse Reactions, Alerts Substance Reaction Event Type N.K.D.A. Info Not Available Non Drug Allergy Problems Problem Type Condition Code Onset Dates Condition Status Assessment Cervical cancer screening Z12.4 Active Assessment Screening, lipid Z13.220 Active Problem Hypertension 401.9 Active Problem Disturbance of skin sensation 782.0 Active Problem Reactive airway disease 493.90 Active Assessment Well woman exam Z01.419 Active Assessment Breast cancer screening Z12.39 Active Problem Acute upper respiratory infections of unspecified site 465.9 Active Problem Esophageal reflux 530.81 Active Medications No Known Medications Procedures Procedure Coding System Code Date SPECIMEN HANDLING CPT-4 40378 Dec 31, 2015 Office Visit, Est Pt., Level 4 CPT-4 33964 Dec 31, 2015 URINE TEST CPT-4 72399 Dec 31, 2015 URINALYSIS, AUTO, W/O SCOPE CPT-4 35657 Dec 31, 2015 Vital Signs Date/Time: Dec 31, 2015 Cardiac Monitoring Heart Rate 80 bpm Weight 240.3 lbs Height 62 in BMI 43.95 Index Blood Pressure Diastolic 86 mmHg Blood Pressure Systolic 124 mmHg Results Name Result Date Reference Range Unit Abnormality Flag PDF Report ----PDF Report1 [facility] 20151231 PAP TEST, HPV IF ASCUS ----. . 20151231 TEST, URINE (IN HOUSE) ----RESULTS negative 20151231 ----Lot # [id number] 20151231 ----Control + 20151231 ----Exp date 20151231 UA LONG DIP (IN HOUSE) ----GUILLERMO negative 20151231 ----GLU negative 20151231 ----SG >1.030 20151231 ----KET negative 20151231 ----pH 5.5 20151231 ----Protein negaive 20151231 ----BLO negative 20151231 ----JEROME negative 20151231 ----Color yellow 20151231 ----Odor none 20151231 ----Exp date 20151231 ----URO 0.2 20151231 ----NIT negative 20151231 ----Clarity clear 20151231 ----Lot # [id number] Mammogram, Bilateral Screening Summary Purpose eClinicalWorks Submission
--- OUTSIDE RECORDS SUMMARY | 2016-06-28 04:29 | XMS REPORT ---
Author Author АННА CONSTANTINO [facility] eClinicalWorks Address Unknown Phone Unavailable Care Team Providers Care Pool Hand Name Role Phone АННА CONSTANTINO CP Unavailable [...] Medications Procedures Procedure Coding System Code Date VENIPUNCT, ROUTINE* CPT-4 13260 Jan 02, 2016 LAB NOT BILLED BY [facility], [facility] CPT-4 NOBLL Jan 02, 2016 Results Name Result Date Reference Range Unit Abnormality Flag ROUTINE VENIPUNCTURE Summary Purpose eClinicalWorks Submission
--- OUTSIDE RECORDS SUMMARY | 2016-06-28 04:29 | XMS REPORT ---
Author Author NIALL SHEPPARD Organization eClinicalWorks Address Unknown Phone Unavailable Care Team Providers Care [employer] Principal Name Role Phone NIALL SHEPPARD CP Unavailable Allergies No Known Allergies Problems Problem Type Condition Code Onset Dates Condition Status Problem Hypertension 401.9 Active Problem Disturbance of skin sensation 782.0 Active Problem Reactive airway disease 493.90 Active Assessment Encounter for immunization Z23 Active Problem Acute upper respiratory infections of unspecified site 465.9 Active Problem Esophageal reflux 530.81 Active Medications No Known Medications Procedures Procedure Coding System Code Date SINGLE IMMUNIZATION ADMIN CPT-4 71939 Jan 19, 2015 FLUARIX QUAD (3 & UP)-GSK-2014 CPT-4 57353 Jan 19, 2015 Results No Known Results Immunizations Vaccine Administration Date FLUARIX QUAD (3 & UP)-GSK-2014Jan 19, 2015 Summary Purpose eClinicalWorks Submission
--- OUTSIDE RECORDS SUMMARY | 2016-06-28 04:29 | XMS REPORT ---
Author Author АННА CONSTANTINO Organization eClinicalWorks Address Unknown Phone Unavailable Care Team Providers Care Or Nurse Manager Name Role Phone АННА CONSTANTINO CP Unavailable Allergies, Adverse Reactions, Alerts Substance Reaction Event Type N.K.D.A. Info Not Available Non Drug Allergy Problems Problem Type Condition Code Onset Dates Condition Status Problem Hypertension 401.9 Active Problem Disturbance of skin sensation 782.0 Active Problem Reactive airway disease 493.90 Active Assessment Tendonitis M77.9 Active Problem Acute upper respiratory infections of unspecified site 465.9 Active Problem Esophageal reflux 530.81 Active Medications Medication Code System Code Instructions Start Date End Date Status Dosage Symbicort [facility] [address]-13 80-4.5 MCG/ACT Inhalation 2 times a day Oct 2 puffs ZyrTEC [facility] [address]-47 10 MG Orally Once a day Oct 18, 2014 Feb 15, 2015 1 tablet as needed ProAir HFA [facility] [address]-84 108 (90 Base) MCG/ACT Inhalation 3 times a day Nov 01, 2014 2 puffs as needed Medrol (Randell) [facility] [address]-47 4 MG Orally Dec 20, 2014 as directed Cymbalta [facility] [address]-59 20 MG Orally Twice a day 1 capsule Singulair [facility] [address]-04 10 MG Orally Once a day at PM Oct 18, 2014 1 tablet in the evening Procedures Procedure Coding System Code Date Office Visit, Est Pt., Level 3 CPT-4 20075 Dec 20, 2014 Vital Signs Date/Time: Dec 20, 2014 Temperature 98.4 F Weight 237.1 lbs Height 65 in BMI 39.45 Index Blood Pressure Diastolic 74 mmHg Blood Pressure Systolic 118 mmHg Cardiac Monitoring Heart Rate 74 bpm Results No Known Results Summary Purpose eClinicalWorks Submission
--- OUTSIDE RECORDS SUMMARY | 2016-06-28 04:29 | XMS REPORT ---
Author Author АННА CONSTANTINO Organization eClinicalWorks Address Unknown Phone Unavailable Care Team Providers Care Business Partner Name Role Phone АННА CONSTANTINO CP Unavailable [...]
--- OUTSIDE RECORDS SUMMARY | 2016-06-28 04:29 | XMS REPORT ---
Author Author АННА CONSTANTINO Organization [employer] Address Unknown Phone Unavailable Care Team Providers Care Product Safety Consultant Name Role Phone АННА CONSTANTINO CP Unavailable Allergies, Adverse Reactions, Alerts Substance Reaction Event Type N.K.D.A. Info Not Available Non Drug Allergy Problems Problem Type Condition Code Onset Dates Condition Status Problem Hypertension 401.9 Active Problem Disturbance of skin sensation 782.0 Active Problem Reactive airway disease 493.90 Active Assessment Left wrist pain M25.532 Active Assessment Effusion of left wrist M25.432 Active Problem Acute upper respiratory infections of unspecified site 465.9 Active Problem Esophageal reflux 530.81 Active Medications Medication Code System Code Instructions Start Date End Date Status Dosage Singulair [facility] [address]-33 10 MG Orally Once a day at PM Oct 18, 2014 1 tablet in the evening ZyrTEC [facility] [address]-60 10 MG Orally Once a day Oct 18, 2014 Feb 15, 2015 1 tablet as needed ProAir HFA [facility] [address]-67 108 (90 Base) MCG/ACT Inhalation 3 times a day Nov 01, 2014 2 puffs as needed Symbicort [facility] [address]-49 80-4.5 MCG/ACT Inhalation 2 times a day Oct 2 puffs Cymbalta [facility] [address]-98 20 MG Orally Twice a day 1 capsule Procedures Procedure Coding System Code Date Office Visit, Est Pt., Level 3 CPT-4 70943 Dec 13, 2014 X-RAY EXAM OF WRIST CPT-4 21747 Dec 13, 2014 Vital Signs Date/Time: Dec 13, 2014 Temperature 99.0 F Weight 239.7 lbs Height 62 in BMI 43.84 Index Blood Pressure Diastolic 84 mmHg Blood Pressure Systolic 134 mmHg Cardiac Monitoring Heart Rate 64 bpm Results No Known Results Summary Purpose [employer] Submission
--- OUTSIDE RECORDS SUMMARY | 2016-06-28 04:29 | XMS REPORT ---
Author RANJIT Nichols [employer] Address Unknown Phone Unavailable Care Team Providers Care Gang Rider Name Role Phone RANJIT ORANTES CP Unavailable Allergies, Adverse Reactions, Alerts Substance Reaction Event Type N.K.D.A. Info Not Available Non Drug Allergy Problems Problem Type Condition Code Onset Dates Condition Status Problem Hypertension 401.9 Active Problem Disturbance of skin sensation 782.0 Active Problem Reactive airway disease 493.90 Active Assessment Splinter of right foot without infection, initial encounter S90.851A Active Problem Acute upper respiratory infections of unspecified site 465.9 Active Problem Esophageal reflux 530.81 Active Medications No Known Medications Procedures Procedure Coding System Code Date Office Visit, Est Pt., Level 3 CPT-4 38914 Jan 08, 2016 REMOVE FOREIGN BODY CPT-4 65641 Jan 08, 2016 Vital Signs Date/Time: Jan 08, 2016 Cardiac Monitoring Heart Rate 84 bpm Weight 239.2 lbs Height 62 in BMI 43.75 Index Blood Pressure Diastolic 74 mmHg Blood Pressure Systolic 126 mmHg Results Name Result Date Reference Range Unit Abnormality Flag FOREIGN BODY REMOVAL-SIMPLE Summary Purpose [employer] Submission
== END 2016-05-25 00:27 | disposition home or self-care (01) ==
LOC: EDUNIT# 20:10 → ER 20:13
DX: G43.909 Migraine, unspecified, not intractable, without status migrainosus (principal); J01.90 Acute sinusitis, unspecified
CPT/HCPCS: 36415; 70450; 71020; 80053; 85025; 86141; 87804; 96361; 96372; 96374; 96375

== ENCOUNTER → 2016-08-04 | Outpatient (CLI) | payer BC, MEDICAID ==
[~2016-08-04] MED LIST changes: +CEFD300C3 PO; +CETI10TA17 PO; +FLUT9.9S NS
--- NOTE | 2016-08-04 10:12 | Diagnostic Imaging Report ---
EXAMINATION: Right breast ultrasound. INDICATION: 6 month followup complicated cystic lesions in the upper outer aspect of the right breast. FINDINGS: At the 10 o'clock position 6 cm from the nipple, there is an intramammary lymph node measuring up to 7 mm in size, similar to the prior exam. There is a complicated cluster of cysts with septations but no internal vascularity noted at the 10 o'clock zone 4 cm from the nipple. This appears different from the previously seen cystic areas which appear to have resolved. This is suggestive of fibrocystic changes in the breast with no persistent solid mass. IMPRESSION: Changing small cystic areas in the upper outer aspect of the right breast without persistent solid mass, suggestive of fibrocystic change. Annual screening mammography is recommended. ACR BI-RADS Category 2: Benign findings. Dictated by: Dictated on workstation # [id number]
== END ==
LOC: RAD 08:57
PROVIDERS: ATTEND Nurse Practitioner Community Health
DX: R92.8 Other abnormal and inconclusive findings on diagnostic imaging of breast (principal)

== ENCOUNTER 2016-09-24 16:04 | Outpatient (RCR) | payer BC, MEDICAID ==
[2016-09-30] MEDS ORDERED: HYDR25TA4 PO (13:01)
[2016-09-30] MEDS ORDERED: AMOX-355 PO (13:01)
== END 2016-10-28 09:28 | disposition home or self-care (01) ==
PROVIDERS: ATTEND Nurse Practitioner Community Health
DX: R20.0 Anesthesia of skin (principal)

== ENCOUNTER 2016-09-30 11:11 | Emergency (ER) | payer BC, MEDICAID ==
[~2016-09-30] VITALS: Ht 157.5 cm; Wt 115.2 kg
--- NOTE | 2016-09-30 11:52 | ED General ---
General Stated Complaint: RT KNEE, SWELLING ALL OVER Source of Information: Patient Exam Limitations: No Limitations History of Present Illness Time Seen by Provider: 11:50 Initial Comments To ER with reports of spontaneous onset right knee pain 2-3 days ago. She does not recall any injury. Pain is worse with any weightbearing. No fevers or chills. She has redness around both ankles which is new. She states that she has swelling all over including her hands and legs which is also new. She's never had that before. Timing/Duration: 1-2 Days Severity: Moderate Allergies and Home Medications Allergies Coded Allergies: NKANo Known Allergies (Unverified Allergy, Unknown, 11/01/05) Home Medications Amoxicillin/Potassium Clav 1 Each Tablet, 1 EACH PO BID, #14 Prescribed by: MOY TERRY on 09/30/16 1301 Cefdinir 300 Mg Capsule, 300 MG PO BID for 10 Days, #20 Ref 0 Prescribed by: FELISA DAVIS on 05/24/16 2310 Cetirizine HCl 10 Mg Tablet, 1 TAB PO UD, #30 (Reported) Fluticasone Propionate 9.9 Ml Channing.susp, 9.9 ML NS UD, (Reported) Hydrochlorothiazide 25 Mg Tablet, 25 MG PO DAILY, #30 Prescribed by: MOY TERRY on 09/30/16 1301 Promethazine HCl/Codeine 118 Ml Syrup, 5 ML PO Q4H PRN for COUGH, #120 Ref 0 Prescribed by: FELISA DAVIS on 05/25/16 0021 Constitutional: see HPI EENTM: see HPI Respiratory: see HPI, No cough, No dyspnea on exertion, No hemoptysis, No short of breath Cardiovascular: see HPI, No chest pain, edema, palpitations Genitourinary: no symptoms reported Musculoskeletal: no symptoms reported Skin: no symptoms reported Psychiatric/Neurological: No Symptoms Reported Past Yikmard-Nhildn-Ieysir Hx Patient Social History 2nd Hand Smoke Exposure: No Recent Foreign Travel: No Contact w/Someone Who Travel: No Recent Hopitalizations: No Immunizations Up To Date Tetanus Booster (TDap): Unknown Date of Influenza Vaccine: Jan 22, 2015 Seasonal Allergies Seasonal Allergies: Yes Surgeries HX Surgeries: Yes (L KNEE) Surgeries: Adenoidectomy, Appendectomy, Orthopedic, Tonsillectomy, Tubal Ligation Respiratory Hx Respiratory Disorders: No Cardiovascular Hx Cardiac Disorders: No (CLEAN HEART CATH IN 2015) Neurological Hx Neurological Disorders: Yes Neurological Disorders: Headaches /Migraines Reproductive System Hx Reproductive Disorders: No 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 Genitourinary Hx Genitourinary Disorders: No Gastrointestinal Hx Gastrointestinal Disorders: Yes Gastrointestinal Disorders: Gastroesophageal Reflux Musculoskeletal Hx Musculoskeletal Disorders: No Endocrine Hx Endocrine Disorders: No HEENT HX ENT Disorders: No Cancer Hx Cancer: No Psychosocial Hx Psychiatric Problems: Yes Behavioral Health Disorders: Depression Integumentary HX Skin/Integumentary Disorder: No Blood Transfusions Hx Blood Disorders: No Family Medical History Significant Family History: No Pertinent Family Hx Physical Exam Vital Signs Vital Sign - Last 12Hours 09/30/16 11:45 Temp 98.8 Pulse 83 Resp 18 B/P (MAP) 189/121 Pulse Ox 95 O2 Delivery Room Air Capillary Refill : General Appearance: No Apparent Distress, WD/WN Eyes: Bilateral Eye Normal Inspection, Bilateral Eye PERRL HEENT: PERRL/EOMI, TMs Normal Neck: Full Range of Motion, Normal Inspection Respiratory: Normal Breath Sounds, No Accessory Muscle Use, No Respiratory Distress Cardiovascular: Regular Rate, Rhythm, Normal Peripheral Pulses Gastrointestinal: Non Tender, Soft Extremity: Normal Capillary Refill, Normal Inspection Neurologic/Psychiatric: Alert, Oriented x3, No Motor/Sensory Deficits Skin: Normal Color, Warm/Dry, Other (there is circumferential erythema around both ankles. Due to her large body habitus I'm unable to appreciate any right knee effusion.) Comments I do not appreciate any significant swelling in the hands but she does have a hair bracelet on her right wrist which has left a slight indentation in her skin. Progress/Results/Core Measures Results/Orders Lab Results Laboratory Tests Test 09/30/16 11:55 Range/Units White Blood Count 10.1 4.3-11.0 10^3/uL Red Blood Count 5.07 4.35-5.85 10^6/uL Hemoglobin 12.4 11.5-16.0 G/DL Hematocrit 38 35-52 % Mean Corpuscular Volume 75 L 80-99 FL Mean Corpuscular Hemoglobin 25 25-34 PG Mean Corpuscular Hemoglobin Concent 33 32-36 G/DL Red Cell Distribution Width 14.7 H 10.0-14.5 % Platelet Count 324 130-400 10^3/uL Mean Platelet Volume 10.7 H 7.4-10.4 FL Neutrophils (%) (Auto) 59 42-75 % Lymphocytes (%) (Auto) 29 12-44 % Monocytes (%) (Auto) 8 0-12 % Eosinophils (%) (Auto) 3 0-10 % Basophils (%) (Auto) 1 0-10 % Neutrophils # (Auto) 6.0 1.8-7.8 X 10^3 Lymphocytes # (Auto) 2.9 1.0-4.0 X 10^3 Monocytes # (Auto) 0.8 0.0-1.0 X 10^3 Eosinophils # (Auto) 0.3 0.0-0.3 10^3/uL Basophils # (Auto) 0.1 0.0-0.1 10^3/uL Sodium Level 138 135-145 MMOL/L Potassium Level 3.6 3.6-5.0 MMOL/L Chloride Level 107 98-107 MMOL/L Carbon Dioxide Level 24 21-32 MMOL/L Anion Gap 7 5-14 MMOL/L Blood Urea Nitrogen 9 7-18 MG/DL Creatinine 0.82 0.60-1.30 MG/DL Estimat Glomerular Filtration Rate > 60 BUN/Creatinine Ratio 11 Glucose Level 98 70-105 MG/DL Calcium Level 9.0 8.5-10.1 MG/DL Total Bilirubin 0.4 0.1-1.0 MG/DL Aspartate Amino Transf (AST/SGOT) 17 5-34 U/L Alanine Aminotransferase (ALT/SGPT) 18 0-55 U/L Alkaline Phosphatase 79 40-136 U/L B-Type Natriuretic Peptide 16.4 <100.0 PG/ML Total Protein 7.5 6.4-8.2 GM/DL Albumin 4.1 3.2-4.5 GM/DL Thyroid Stimulating Hormone (TSH) 1.82 0.35-4.94 UIU/ML Free Thyroxine 1.27 0.70-1.48 NG/DL My Orders Orders - MOY TERRY TECHNICAL FELLOW Cbc With Automated Diff (09/30/16 11:48) Comprehensive Metabolic Panel (09/30/16 11:48) Ua Culture If Indicated (09/30/16 11:48) Saline Lock/Iv-Start (09/30/16 11:48) Thyroid Stimulating Hormone (09/30/16 11:48) Free T4 (Free Thyroxine) (09/30/16 11:48) BNP (09/30/16 11:48) Knee, Right, 3 Views (09/30/16 11:48) Us Venous Lower Ext Rt (09/30/16 11:48) Clonidine Tablet (Catapres Tablet) (09/30/16 13:15) Vital Signs/I&O Vital Sign - Last 12Hours 09/30/16 11:45 Temp 98.8 Pulse 83 Resp 18 B/P (MAP) 189/121 Pulse Ox 95 O2 Delivery Room Air Diagnostic Imaging Diagonstic Imaging: Xray Comments NAME: KINGSLEY JULIEN [facility] REC#: [id number] PT STATUS: REG ER : 1970 PHYSICIAN: MOY TERRY APRN ADMIT DATE: 09/30/16/ER Signed Date of Exam:09/30/16 US VENOUS LOWER EXT RT EXAMINATION: Right lower extremity duplex venous ultrasound. TECHNIQUE: DVT protocol. Multiple sonographic images with color Doppler and waveform interrogation were performed of the right lower extremity veins with compression and augmentation maneuvers. INDICATION: Right leg edema. FINDINGS: The right lower extremity veins from the groin to below the knee veins were examined with normal color-flow, compressibility and normal waveform demonstrated. The great saphenous vein is patent. IMPRESSION: No evidence of DVT in the right lower extremity. Dictated by: Dictated on workstation # [id number] Dict: 09/30/16 1207 Trans: 09/30/16 1212 [facility] [id number] Interpreted by: DOYLE TRUONG MD Electronically signed by: DOYLE TRUONG MD 09/30/16 1212 NAME: KINGSLEY JULIEN [facility] REC#: [id number] PT STATUS: REG ER : 1970 PHYSICIAN: MOY TERRY APRN ADMIT DATE: 09/30/16/ER Draft Date of Exam:09/30/16 KNEE, RIGHT, 3 VIEWS EXAMINATION: Three views of the right knee. INDICATION: Right knee swelling and pain. FINDINGS: There is no fracture, dislocation, or radiopaque foreign body. The joint spaces appear unremarkable. No suprapatellar effusion is seen. IMPRESSION: Unremarkable exam. Dictated on workstation # [id number] Dict: 09/30/16 1224 Trans: 09/30/16 1242 [id number] Interpreted by: DOYLE TRUONG MD Electronically signed by: Departure Impression Impression: Primary Impression: Left knee pain Additional Impressions: Hypertension erysipelas both ankles Disposition: HOME, SELF-CARE Condition: Stable Departure-Patient Inst. Decision time for Depature: 12:59 Referrals: АННА CONSTANTINO (PCP) Primary Care Physician [facility] (Family) Primary Care Physician Patient Instructions: Erysipelas, Malignant Hypertension Add. Discharge Instructions: 1. Take the blood pressure medication as directed 2. Take antibiotics as directed 3. Follow-up with your doctor later this week 4. If the knee pain persists you should discuss an MRI of the knee to look at the meniscus and the ligaments. Scripts Hydrochlorothiazide (Hydrochlorothiazide) 25 Mg Tablet 25 MG PO DAILY, #30 TAB Prov: MOY TERRY TECHNICAL FELLOW 09/30/16 Amoxicillin/Potassium Clav (Augmentin 500-125 Tablet) 1 Each Tablet 1 EACH PO BID, #14 TAB Prov: MOY TERRY APRN 09/30/16 MOY TERRY TECHNICAL FELLOW Sep 30, 2016 11:51
[2016-09-30 12:09] LABS: RED BLOOD COUNT 5.07 10^6/uL (4.35-5.85); WHITE BLOOD COUNT 10.1 10^3/uL (4.3-11.0)
[2016-09-30 12:10] LABS: BASOPHILS # (AUTO) 0.1 10^3/uL (0.0-0.1); BASOPHILS % (AUTO) 1 % (0-10); EOSINOPHILS # (AUTO) 0.3 10^3/uL (0.0-0.3); EOSINOPHILS % (AUTO) 3 % (0-10); LYMPHOCYTES # (AUTO) 2.9 X 10^3 (1.0-4.0); LYMPHOCYTES % (AUTO) 29 % (12-44); MEAN CORPUSCULAR HEMOGLOBIN 25 PG (25-34); MEAN CORPUSCULAR HGB CONC 33 G/DL (32-36); MEAN CORPUSCULAR VOLUME 75 FL (80-99); MEAN PLATELET VOLUME 10.7 FL (7.4-10.4); MONOCYTES # (AUTO) 0.8 X 10^3 (0.0-1.0); MONOCYTES % (AUTO) 8 % (0-12); NEUTROPHILS % (AUTO) 59 % (42-75); PLATELET COUNT 324 10^3/uL (130-400); RED CELL DISTRIBUTION WIDTH 14.7 % (10.0-14.5)
--- NOTE | 2016-09-30 12:15 | Diagnostic Imaging Report ---
EXAMINATION: Right lower extremity duplex venous ultrasound. TECHNIQUE: DVT protocol. Multiple sonographic images with color Doppler and waveform interrogation were performed of the right lower extremity veins with compression and augmentation maneuvers. INDICATION: Right leg edema. FINDINGS: The right lower extremity veins from the groin to below the knee veins were examined with normal color-flow, compressibility and normal waveform demonstrated. The great saphenous vein is patent. IMPRESSION: No evidence of DVT in the right lower extremity. Dictated by: Dictated on workstation # [id number]
[2016-09-30 12:33] LABS: ALANINE AMINOTRANSFERASE 18 U/L (0-55); ALBUMIN 4.1 GM/DL (3.2-4.5); ANION GAP 7 MMOL/L (5-14); ASPARTATE AMINO TRANSFERASE 17 U/L (5-34); BILIRUBIN,TOTAL 0.4 MG/DL (0.1-1.0); BLOOD UREA NITROGEN 9 MG/DL (7-18); BUN/CREATININE RATIO 11; CARBON DIOXIDE 24 MMOL/L (21-32); CHLORIDE 107 MMOL/L (98-107); CREATININE SERUM 0.82 MG/DL (0.60-1.30); GFR ESTIMATED > 60; GLUCOSE 98 MG/DL (70-105); POTASSIUM 3.6 MMOL/L (3.6-5.0); SODIUM 138 MMOL/L (135-145); TOTAL PROTEIN 7.5 GM/DL (6.4-8.2)
--- NOTE | 2016-09-30 12:43 | Diagnostic Imaging Report ---
EXAMINATION: Three views of the right knee. INDICATION: Right knee swelling and pain. FINDINGS: There is no fracture, dislocation, or radiopaque foreign body. The joint spaces appear unremarkable. No suprapatellar effusion is seen. IMPRESSION: Unremarkable exam. Dictated by: Dictated on workstation # [id number]
[2016-09-30 12:55] LABS: THYROID STIMULATING HORMONE 1.82 UIU/ML (0.35-4.94)
[2016-09-30] MEDS ORDERED: HYDR25TA4 PO (13:01)
[2016-09-30] MEDS ORDERED: AMOX-355 PO (13:01)
[2016-09-30] MEDS ORDERED: cloNIDine 0.1 MG (CATAPRES) TAB PO ONE (13:15)
[2016-09-30 13:18] VITALS: BP 141/103
== END 2016-09-30 13:18 | disposition home or self-care (01) ==
LOC: EDUNIT# 11:11 → ER 11:14
DX: M25.561 Pain in right knee (principal); A46 Erysipelas; I10 Essential (primary) hypertension; F32.9 Major depressive disorder, single episode, unspecified; K21.9 Gastro-esophageal reflux disease without esophagitis; G43.909 Migraine, unspecified, not intractable, without status migrainosus; Z90.49 Acquired absence of other specified parts of digestive tract; Z87.59 Personal history of other complications of pregnancy, childbirth and the puerperium; Z90.89 Acquired absence of other organs; Z98.51 Tubal ligation status
CPT/HCPCS: 36415; 73562; 80053; 83880; 84439; 84443; 85025

== ENCOUNTER → 2017-03-15 | Outpatient (CLI) | payer BC, MEDICAID ==
[~2017-03-15] MED LIST changes: +AMOX-355 PO; +AZIT250T12 PO; -AZIT250T5 PO; +HYDR25TA4 PO; -NAPR500T3 PO; +NAPR500T4 PO
--- NOTE | 2017-03-15 09:36 | Diagnostic Imaging Report ---
PROCEDURE: MRI right joint lower extremity without contrast. TECHNIQUE: Multiplanar, multisequence non contrast-enhanced MRI of the right lower extremity was accomplished. INDICATION: Right knee pain. Patient's prior history of right knee surgery. No prior studies are available for comparison. Study is somewhat compromised due to patient body habitus. There is a large knee joint effusion. The marrow signal intensity is unremarkable. No bone bruise or geographic marrow lesion is identified. The ACL and PCL are intact. The medial and lateral collateral complexes appear intact. The lateral meniscus is intact. Medial meniscus does show some medial subluxation. There is a large amount of signal identified in the posterior horn of the medial meniscus. This comes in close proximity to the inferior articular surface, suspicious for meniscal tear versus myxoid degeneration. There is moderate signal of the posterior horn near the meniscal root as well, suspicious for meniscal root tear. The body and anterior horn are intact. No displaced meniscal fragment is seen. The extensor mechanism is unremarkable. Articular cartilage does show some chondromalacia of the patellar articular cartilage. Medial and lateral femoral condyle articular cartilage appears intact. IMPRESSION: Moderate-sized knee joint effusion. This is a probable tear involving the medial meniscus particularly in the region of meniscal root of the posterior horn. No displaced meniscal fragment is seen. No ligamentous abnormality is identified. Dictated by: Dictated on workstation # [id number]
== END ==
LOC: RAD 08:09
PROVIDERS: ATTEND Nurse Practitioner Community Health
DX: M25.461 Effusion, right knee (principal); Z98.890 Other specified postprocedural states
CPT/HCPCS: 73721

== ENCOUNTER 2017-04-22 13:34 | Outpatient (RCR) | payer MEDICAID ==
[~2017-04-22 13:34] MED LIST changes: +NAPR-915 PO; -NAPR500T4 PO
== END 2017-04-22 14:08 | disposition home or self-care (01) ==
PROVIDERS: ATTEND Orthopaedic Surgery
DX: M94.261 Chondromalacia, right knee (principal); R29.898 Other symptoms and signs involving the musculoskeletal system

== ENCOUNTER 2017-05-29 20:01 | Emergency (ER) | payer MEDICAID ==
[~2017-05-29] VITALS: Ht 157.5 cm; Wt 117.9 kg
[2017-05-29] MEDS ORDERED: MELO15TA39 (20:23)
[2017-05-29] MEDS ORDERED: RX-OSELTAMIVIR 75 MG (TAMIFLU) BOX OF 10 PO STA (21:37)
[2017-05-29] MEDS ORDERED: BENZONATATE 100 MG (TESSALON) CAPSULE PO ONE (21:39)
[2017-05-29] MEDS ORDERED: GUAI1TBM19 PO (21:39)
[2017-05-29] MEDS ORDERED: BENZ-13 PO (21:39)
[2017-05-29] MEDS ORDERED: METH4TAB PO (21:39)
--- NOTE | 2017-05-29 21:39 | ED Cough/URI ---
General Chief Complaint: Cough/Cold/Flu Symptoms Stated Complaint: FEVER,CHILLS,HEADACHE Nursing Triage Note: COUGH, CHILLS, SORE THROAT X1 DAY Allergies and Home Medications Allergies Coded Allergies: NKANo Known Allergies (Unverified Allergy, Unknown, 11/01/05) Past Nszfxzp-Jbqodg-Olulsx Hx Patient Social History Alcohol Use: Denies Use Recreational Drug Use: No Smoking Status: Never a Smoker 2nd Hand Smoke Exposure: No Recent Foreign Travel: No Contact w/Someone Who Travel: No Recent Infectious Disease Expo: No Recent Hopitalizations: No Immunizations Up To Date Tetanus Booster (TDap): Unknown Date of Influenza Vaccine: Jan 22, 2015 Seasonal Allergies Seasonal Allergies: Yes Past Medical History Surgeries: Yes (L KNEE) Adenoidectomy, Appendectomy, Orthopedic, Tonsillectomy, Tubal Ligation Respiratory: No Cardiac: No Neurological: Yes Headaches /Migraines : No 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 Sexually Transmitted Disease: No Genitourinary: No Gastrointestinal: Yes Gastroesophageal Reflux Musculoskeletal: No Endocrine: No HEENT: No Cancer: No Psychosocial: Yes Depression Integumentary: No Blood Disorders: No Family Medical History No Pertinent Family Hx Physical Exam Vital Signs Vital Signs - First Documented 05/29/17 20:15 Temp 98.7 Pulse 87 Resp 18 B/P (MAP) 157/99 (118) Pulse Ox 96 O2 Delivery Room Air Capillary Refill : Less Than 3 Seconds Progress/Results/Core Measures Suspected Sepsis Recent Fever Within 48 Hours: No Infection Criteria Present: None New/Unexplained Altered Menta: No Sepsis Screen: No Definite Risk Sepsis Diagnosis: SIRS Temperature:98.7 Pulse: 87 Respiratory Rate: 18 Blood Pressure 157 /99 Mean: 118 Results/Orders Lab Results Laboratory Tests Test 05/29/17 20:35 Range/Units Group A Streptococcus Screen NEGATIVE NEGATIVE Micro Results Microbiology 05/29/17 Influenza Types A,B Antigen (KARL) - Final, Complete My Orders Orders - GOPAL LY DO Rapid Strep A Screen (05/29/17 20:33) Influenza A And B Antigens (05/29/17 20:33) Rx-Oseltamivir Caps (Rx-Tamiflu Caps) (05/29/17 21:37) Prednisone Tablet (Deltasone Tablet) (05/29/17 21:45) Benzonatate Capsule (Tessalon Perles) (05/30/17 09:00) Vital Signs/I&O 05/29/17 05/29/17 20:15 20:15 Temp 98.7 Pulse 87 Resp 18 B/P (MAP) 157/99 (118) Pulse Ox 96 O2 Delivery Room Air Room Air Capillary Refill : Less Than 3 Seconds Blood Pressure Mean: 118 Departure Impression Primary Impression: Influenza-like symptoms Disposition: HOME, SELF-CARE Condition: Stable Departure-Patient Inst. Referrals: GABRIEL OSULLIVAN DO (PCP) Primary Care Physician АННА CONSTANTNIO (Family) Primary Care Physician Patient Instructions: Flu, Adult (DC) Add. Discharge Instructions: TYLENOL AND MOTRIN NEEDED FOR PAIN OR FEVER LOTS OF CLEAR LIQUIDS FOLLOW UP WITH YOUR DR IN 3-4 DAYS IF NO BETTER All discharge instructions reviewed with patient and/or family. Voiced understanding. Scripts Guaifenesin/Dextromethorphan (Mucinex Dm ER 1,200-60 mg Tab) 1 Each Tbmp.12hr 1 EACH PO BID for 10 Days, #20 EA Prov: GOPAL LY DO 05/29/17 Benzonatate (Tessalon Perle) 100 Mg Capsule 1-2 TAB PO TID for Cough, #30 CAP Prov: GOPAL LY DO 05/29/17 Methylprednisolone (Medrol) 4 Mg Tab.ds.pk 4 MG PO UD, #1 PKG Prov: GOPAL LY DO 05/29/17 GOPAL LY DO May 29, 2017 21:39
[2017-05-29 21:45] VITALS: BP 141/89
[2017-05-29] MEDS ORDERED: predniSONE 20 MG TAB PO ONE (21:45)
[2017-05-30] MEDS ORDERED: BENZONATATE 100 MG (TESSALON) CAPSULE PO SCH (09:00)
== END 2017-05-29 21:43 | disposition home or self-care (01) ==
LOC: EDUNIT# 20:01 → ER 20:02
DX: J11.1 Influenza due to unidentified influenza virus with other respiratory manifestations (principal); F32.9 Major depressive disorder, single episode, unspecified; K21.9 Gastro-esophageal reflux disease without esophagitis; G43.909 Migraine, unspecified, not intractable, without status migrainosus; Z90.49 Acquired absence of other specified parts of digestive tract; Z90.89 Acquired absence of other organs; Z98.51 Tubal ligation status
CPT/HCPCS: 87430; 87804; 99283

== ENCOUNTER 2017-06-17 20:28 | Emergency (ER) | payer MEDICAID ==
[~2017-06-17] VITALS: Ht 157.5 cm; Wt 112.0 kg
[~2017-06-17 20:28] MED LIST changes: +BENZ-13 PO; +GUAI1TBM19 PO; +MELO15TA39; +METH4TAB PO
--- NOTE | 2017-06-17 21:31 | ED Upper Extremity ---
General Chief Complaint: Upper Extremity Stated Complaint: L WRIST PAIN, STIFF Nursing Triage Note: pt c/o left wrist pain, denies injury. Onset this morning upon waking up Nursing Sepsis Screen: No Definite Risk History of Present Illness Date Seen by Provider: Jun 17, 2017 Time Seen by Provider: 20:40 Initial Comments 47-year-old female presents for left wrist pain, the pain is at the base of her left thumb, over the radius. She states that it began this morning when she awoke, she wondered if she had slept on it wrong. She has been told in the past that she has carpal tunnel syndrome and recommended for surgery but she has not had the procedure. She denies any paresthesias or radicular symptoms. She has taken Tylenol and ibuprofen alternating today with no improvement in her symptoms. She denies any injuries. Pain/Injury Location: left wrist Method of Injury: unknown Modifying Factors: Improves With Rest Allergies and Home Medications Allergies Coded Allergies: NKANo Known Allergies (Unverified Allergy, Unknown, 11/01/05) Home Medications Benzonatate 100 Mg Capsule, 1-2 TAB PO TID Prescribed by: GOPAL LY on 05/29/172138 Guaifenesin/Dextromethorphan 1 Each Tbmp.12hr, 1 EACH PO BID Prescribed by: GOPAL LY on 05/29/172138 Methylprednisolone 4 Mg Tab.ds.pk, 4 MG PO UD Prescribed by: GOPAL LY on 05/29/172138 Patient Home Medication List Home Medication List Reviewed: Yes Constitutional: no symptoms reported, see HPI Musculoskeletal: see HPI, joint pain (left wrist) All Other Systems Reviewed Negative Unless Noted: Yes Past Jxjuluj-Pjjsbx-Parxjr Hx Past Med/Social Hx: Reviewed Nursing Past Med/Soc Hx Patient Social History Alcohol Use: Denies Use Recreational Drug Use: No Smoking Status: Never a Smoker 2nd Hand Smoke Exposure: No Recent Foreign Travel: No Contact w/Someone Who Travel: No Recent Infectious Disease Expo: No Recent Hopitalizations: No Physical Abuse: No Sexual Abuse: No Immunizations Up To Date Tetanus Booster (TDap): Unknown Date of Influenza Vaccine: Jan 22, 2015 Seasonal Allergies Seasonal Allergies: Yes Past Medical History Surgeries: Yes (L KNEE) Adenoidectomy, Appendectomy, Orthopedic, Tonsillectomy, Tubal Ligation Respiratory: No Cardiac: No Neurological: Yes Headaches /Migraines 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 Sexually Transmitted Disease: No Genitourinary: No Gastrointestinal: Yes Gastroesophageal Reflux Musculoskeletal: No Endocrine: No HEENT: No Cancer: No Psychosocial: Yes Depression Nursing Suicide Risk Score: 0 Integumentary: No Blood Disorders: No Family Medical History No Pertinent Family Hx Physical Exam Vital Signs Vital Signs - First Documented 06/17/17 20:36 Temp 98.7 Pulse 73 Resp 17 B/P (MAP) 137/85 (102) Pulse Ox 97 Capillary Refill : Less Than 3 Seconds General Appearance: WD/WN, no apparent distress Cardiovascular: normal peripheral pulses, regular rate, rhythm, no murmur Respiratory: chest non-tender, lungs clear Wrist: Yes normal inspection, Yes no evidence of injury, Yes normal ROM; No asymmetry; Yes bone tenderness (distal radius); No deformity, No ecchymosis, No limited ROM, No mass; Yes pain, Yes soft tissue tenderness; No swelling Hand: normal inspection, non-tender, no evidence of injury, normal ROM, Left Neurologic/Tendon: normal sensation, normal motor functions, normal tendon functions Neurologic/Psychiatric: no motor/sensory deficits, alert, normal mood/affect, oriented x 3 Skin: normal color, warm/dry Progress/Results/Core Measures My Orders Orders - BEBETO GRIFFIN Wrist, Left, 3 Views Or More (06/17/17 20:49) Tramadol Tablet (Ultram Tablet) (06/17/17 20:49) Vital Signs/I&O 06/17/17 06/17/17 20:36 21:45 Temp 98.7 98.7 Pulse 73 73 Resp 17 17 B/P (MAP) 137/85 (102) 137/85 (102) Pulse Ox 97 97 Blood Pressure Mean: 102 Progress Note : Time: 20:40 Progress Note Initial evaluation completed, recommended x-ray of the left wrist and Ultram 50 mg orally. 2114 wrist splint applied to left upper extremity. Diagonstic Imaging: Xray Plain Films/CT/US/NM/MRI: other Comments No fractures dislocations or other acute abnormalities noted, will be read by radiology. NAME: KINGSLEY JULIEN [facility] REC#: [id number] PT STATUS: DEP ER : 1970 PHYSICIAN: BEBETO GRIFFIN ADMIT DATE: 06/17/17/ER Draft Date of Exam:06/17/17 WRIST, LEFT, 3 VIEWS OR MORE EXAMINATION: Left wrist, 3 views. COMPARISON: None. HISTORY: 47-year-old female, wrist pain. FINDINGS: There is no identified acute fracture or dislocation. There is no radiopaque foreign body. Bone mineralization and alignment are unremarkable. The joint spaces are well-preserved. There is no prominent focal soft tissue swelling noted radiographically. IMPRESSION: 1. Unremarkable radiographs of the left wrist. Dictated on workstation # [id number] Dict: 06/17/17 2144 Trans: 06/17/17 2201 [id number] Interpreted by: AMILCAR MARTINEZ MD Electronically signed by: Reviewed: Reviewed by Me Departure Impression Primary Impression: Left wrist pain Disposition: HOME, SELF-CARE Condition: Stable Departure-Patient Inst. Decision time for Depature: 21:15 Referrals: GABRIEL OSULLIVAN DO (PCP) Primary Care Physician АННА CONSTANTINO (Family) Primary Care Physician Patient Instructions: Common Wrist Injuries (DC), De Quervain's Tenosynovitis Add. Discharge Instructions: Ice to left wrist 20 minutes every 2 hours. May between Tylenol 650 mg and ibuprofen 600 mg every 4 hours for pain Wear the wrist splint for 3-4 days continuously except for sleeping, then as needed. Follow-up with your primary care provider next week if symptoms are not improving or worsen, may require referral to orthopedics. Return to emergency department if symptoms are not improving or for new emergent problems. All discharge instructions reviewed with patient and/or family. Voiced understanding. Copy Copies To 1: GABRIEL OSULLIVAN AMY ARNP Jun 17, 2017 21:31
[2017-06-17 21:45] VITALS: BP 137/85
--- NOTE | 2017-06-17 22:01 | Diagnostic Imaging Report ---
EXAMINATION: Left wrist, 3 views. COMPARISON: None. HISTORY: 47-year-old female, wrist pain. FINDINGS: There is no identified acute fracture or dislocation. There is no radiopaque foreign body. Bone mineralization and alignment are unremarkable. The joint spaces are well-preserved. There is no prominent focal soft tissue swelling noted radiographically. IMPRESSION: 1. Unremarkable radiographs of the left wrist. Dictated by: Dictated on workstation # [id number]
== END 2017-06-17 21:45 | disposition home or self-care (01) ==
LOC: EDUNIT# 20:28 → ER 20:29
DX: M25.532 Pain in left wrist (principal); G56.02 Carpal tunnel syndrome, left upper limb; K21.9 Gastro-esophageal reflux disease without esophagitis; F32.9 Major depressive disorder, single episode, unspecified; G43.909 Migraine, unspecified, not intractable, without status migrainosus; Z90.49 Acquired absence of other specified parts of digestive tract; Z98.51 Tubal ligation status; Z79.52 Long term (current) use of systemic steroids; Z90.89 Acquired absence of other organs
CPT/HCPCS: 73110

== ENCOUNTER 2017-07-15 12:53 | Emergency (ER) | payer MEDICAID ==
[~2017-07-15] VITALS: Ht 157.5 cm; Wt 113.4 kg
[2017-07-15] MEDS: KETOROLAC 30 MG/ML VIAL IVP STA (14:30)
[2017-07-15] MEDS: fentaNYL INJECTION 100 MCG/2 ML AMP IVP STA (14:30)
[2017-07-15 14:38] LABS: BASOPHILS # (AUTO) 0.1 10^3/uL (0.0-0.1); BASOPHILS % (AUTO) 1 % (0-10); EOSINOPHILS # (AUTO) 0.2 10^3/uL (0.0-0.3); EOSINOPHILS % (AUTO) 2 % (0-10); HEMATOCRIT 38 % (35-52); HEMOGLOBIN 12.6 G/DL (11.5-16.0); LYMPHOCYTES # (AUTO) 2.2 X 10^3 (1.0-4.0); LYMPHOCYTES % (AUTO) 20 % (12-44); MEAN CORPUSCULAR HEMOGLOBIN 25 PG (25-34); MEAN CORPUSCULAR HGB CONC 33 G/DL (32-36); MEAN CORPUSCULAR VOLUME 75 FL (80-99); MEAN PLATELET VOLUME 10.3 FL (7.4-10.4); MONOCYTES # (AUTO) 0.7 X 10^3 (0.0-1.0); MONOCYTES % (AUTO) 7 % (0-12); NEUTROPHILS # (AUTO) 7.7 X 10^3 (1.8-7.8); NEUTROPHILS % (AUTO) 70 % (42-75); PLATELET COUNT 314 10^3/uL (130-400); RED BLOOD COUNT 5.06 10^6/uL (4.35-5.85); RED CELL DISTRIBUTION WIDTH 14.9 % (10.0-14.5); WHITE BLOOD COUNT 10.9 10^3/uL (4.3-11.0)
[2017-07-15 15:01] LABS: ALANINE AMINOTRANSFERASE 16 U/L (0-55); ALBUMIN 4.3 GM/DL (3.2-4.5); ALKALINE PHOSPHATASE 76 U/L (40-136); BILIRUBIN,TOTAL 0.2 MG/DL (0.1-1.0); BUN/CREATININE RATIO 15; CALCIUM 9.5 MG/DL (8.5-10.1); CARBON DIOXIDE 21 MMOL/L (21-32); CHLORIDE 107 MMOL/L (98-107); CREATININE SERUM 0.73 MG/DL (0.60-1.30); GFR ESTIMATED > 60; GLUCOSE 93 MG/DL (70-105); POTASSIUM 4.1 MMOL/L (3.6-5.0); SODIUM 139 MMOL/L (135-145); TOTAL PROTEIN 7.7 GM/DL (6.4-8.2)
--- NOTE | 2017-07-15 15:36 | Diagnostic Imaging Report ---
INDICATION: Pelvic pain. TECHNIQUE: Multiple real-time grayscale images were obtained of the pelvis in various projections endovaginally. Transabdominal imaging was also performed. FINDINGS: The uterus measures 8.8 x 4.9 x 4.6 cm. The endometrium is 6 mm in thickness. No myometrial mass is detected. The right ovary measures 2.7 x 3.3 x 2.0 cm. There are small follicles on the right ovary. There is blood flow to the right ovary. Left ovary is obscured by bowel gas. No adnexal mass or free fluid is seen. IMPRESSION: Nonvisualized left ovary. The study is otherwise unremarkable. Dictated by: Dictated on workstation # [id number]
--- NOTE | 2017-07-15 15:42 | ED GU-Female ---
General Chief Complaint: -Female Stated Complaint: PELVIC PAIN WITH MENSTRUAL CYCLE,HEAVY FLOW Nursing Triage Note: ARRIVED VIA AMB TO ROOM 05. COMPLAINS OF ABD CRAMPING AND HEAVY FLOW WITH HER PERIOD. STATES SHE TOOK A TRAMADOL TO DAY WHICH HAS NOT HELPED. STATES SHE HAS WENT THRE 3-4 TAMPONS SINCE 0600. Nursing Sepsis Screen: No Definite Risk Source: patient Exam Limitations: no limitations (NORIS ROBISON MD) History of Present Illness Date Seen by Provider: July 15, 2017 Time Seen by Provider: 14:10 Initial Comments Here with report of every menstrual bleeding and pain in the suprapubic region. She states that it radiates bilateral. Started yesterday and still going on today. Not better with Tylenol or tramadol. Never had anything like this before. Denies vaginal discharge currently. Denies dysuria but has had some diarrhea. Timing/Duration: yesterday, getting worse Severity/Quality: moderate, cramping Location: suprapubic Radiation: RLQ, LLQ Activities at Onset: none Modifying Factors: Improves With Resting Associated Symptoms: abdominal pain; No dysuria, No lower back pain, No nausea/ vomiting, No urinary frequency (NOIRS ROBISON MD) Allergies and Home Medications Allergies Coded Allergies: NKANo Known Allergies (Unverified Allergy, Unknown, 11/01/05) Home Medications No Active Prescriptions or Reported Meds Patient Home Medication List Home Medication List Reviewed: Yes (NORIS ROBISON MD) Review of Systems Constitutional: see HPI; No chills, No fever Respiratory: no symptoms reported Cardiovascular: no symptoms reported Gastrointestinal: see HPI, diarrhea; No vomiting Genitourinary: see HPI, pain; denies urgency Musculoskeletal: no symptoms reported Skin: no symptoms reported Psychiatric/Neurological: No Symptoms Reported (NORIS ROBISON MD) Past Asgvajq-Erlpci-Uiunos Hx Past Med/Social Hx: Reviewed Nursing Past Med/Soc Hx (NORIS ROBISON MD) Patient Social History Alcohol Use: Occasionally Uses Recreational Drug Use: No Smoking Status: Never a Smoker 2nd Hand Smoke Exposure: No Recent Foreign Travel: No Contact w/Someone Who Travel: No Recent Infectious Disease Expo: No Recent Hopitalizations: No (NORIS ROBISON MD) Immunizations Up To Date Tetanus Booster (TDap): Unknown Date of Influenza Vaccine: Jan 22, 2015 (NORIS ROBISON MD) Seasonal Allergies Seasonal Allergies: Yes (NORIS ROBISON MD) Past Medical History Surgeries: Yes (L KNEE) Adenoidectomy, Appendectomy, Orthopedic, Tonsillectomy, Tubal Ligation Respiratory: No Cardiac: No Neurological: Yes Headaches /Migraines 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 Sexually Transmitted Disease: No Genitourinary: No Gastrointestinal: Yes Gastroesophageal Reflux Musculoskeletal: No Endocrine: No HEENT: No Cancer: No Psychosocial: Yes Depression Integumentary: No Blood Disorders: No (NORIS ROBISON MD) Family Medical History Reviewed Nursing Family Hx (NORIS ROBISON MD) No Pertinent Family Hx (NORIS ROBISON MD) Physical Exam Vital Signs Vital Signs - First Documented 07/15/17 13:53 Temp 98.0 Pulse 79 Resp 18 B/P (MAP) 169/79 (109) Pulse Ox 95 O2 Delivery Room Air (BREA ELLISON MD) Vital Signs Capillary Refill : Less Than 3 Seconds (NORIS ROBISON MD) General Appearance: WD/WN, no apparent distress Cardiovascular: regular rate, rhythm, no murmur Respiratory: lungs clear, normal breath sounds Gastrointestinal: non tender, soft Back: normal inspection, no CVA tenderness, no vertebral tenderness Extremities: non-tender, normal inspection Neurologic/Psychiatric: alert, oriented x 3 Skin: normal color, warm/dry (NORIS ROBISON MD) Progress/Results/Core Measures Suspected Sepsis Recent Fever Within 48 Hours: No Infection Criteria Present: None New/Unexplained Altered Menta: No Sepsis Screen: No Definite Risk SIRS Temperature:98.0 Pulse: 79 Respiratory Rate: 18 Laboratory Tests 07/15/17 14:30: White Blood Count 10.9 Blood Pressure 169 /79 Mean: 109 Laboratory Tests 07/15/17 14:30: Creatinine 0.73, Platelet Count 314, Total Bilirubin 0.2 (NORIS ROBISON MD) Results/Orders Lab Results Laboratory Tests Test 07/15/17 14:30 07/15/17 15:13 Range/Units White Blood Count 10.9 4.3-11.0 10^3/uL Red Blood Count 5.06 4.35-5.85 10^6/uL Hemoglobin 12.6 11.5-16.0 G/DL Hematocrit 38 35-52 % Mean Corpuscular Volume 75 L 80-99 FL Mean Corpuscular Hemoglobin 25 25-34 PG Mean Corpuscular Hemoglobin Concent 33 32-36 G/DL Red Cell Distribution Width 14.9 H 10.0-14.5 % Platelet Count 314 130-400 10^3/uL Mean Platelet Volume 10.3 7.4-10.4 FL Neutrophils (%) (Auto) 70 42-75 % Lymphocytes (%) (Auto) 20 12-44 % Monocytes (%) (Auto) 7 0-12 % Eosinophils (%) (Auto) 2 0-10 % Basophils (%) (Auto) 1 0-10 % Neutrophils # (Auto) 7.7 1.8-7.8 X 10^3 Lymphocytes # (Auto) 2.2 1.0-4.0 X 10^3 Monocytes # (Auto) 0.7 0.0-1.0 X 10^3 Eosinophils # (Auto) 0.2 0.0-0.3 10^3/uL Basophils # (Auto) 0.1 0.0-0.1 10^3/uL Sodium Level 139 135-145 MMOL/L Potassium Level 4.1 3.6-5.0 MMOL/L Chloride Level 107 98-107 MMOL/L Carbon Dioxide Level 21 21-32 MMOL/L Anion Gap 11 5-14 MMOL/L Blood Urea Nitrogen 11 7-18 MG/DL Creatinine 0.73 0.60-1.30 MG/DL Estimat Glomerular Filtration Rate > 60 BUN/Creatinine Ratio 15 Glucose Level 93 70-105 MG/DL Calcium Level 9.5 8.5-10.1 MG/DL Total Bilirubin 0.2 0.1-1.0 MG/DL Aspartate Amino Transf (AST/SGOT) 14 5-34 U/L Alanine Aminotransferase (ALT/SGPT) 16 0-55 U/L Alkaline Phosphatase 76 40-136 U/L Total Protein 7.7 6.4-8.2 GM/DL Albumin 4.3 3.2-4.5 GM/DL Urine Color YELLOW Urine Clarity SLIGHTLY CLOUDY Urine pH 5 5-9 Urine Specific [place] 1.030 H 1.016-1.022 Urine Protein 2+ H NEGATIVE Urine Glucose (UA) NEGATIVE NEGATIVE Urine Ketones 1+ H NEGATIVE Urine Nitrite NEGATIVE NEGATIVE Urine Bilirubin 1+ H NEGATIVE Urine Urobilinogen 4 H NORMAL MG/DL Urine Leukocyte Esterase 1+ H NEGATIVE Urine RBC (Auto) 5+ H NEGATIVE Urine RBC 10-25 H /HPF Urine WBC RARE /HPF Urine Squamous Epithelial Cells 0-2 /HPF Urine Crystals PRESENT H /LPF Urine Amorphous Sediment LARGE JERMAINE URATES H /LPF Urine Bacteria TRACE /HPF Urine Casts NONE /LPF Urine Mucus NEGATIVE /LPF Urine Culture Indicated NO (BREA ELLISON MD) Vital Signs/I&O 07/15/17 13:53 Temp 98.0 Pulse 79 Resp 18 B/P (MAP) 169/79 (109) Pulse Ox 95 O2 Delivery Room Air (BREA ELLISON MD) Vital Signs/I&O Capillary Refill : Less Than 3 Seconds (NORIS ROBISON MD) Blood Pressure Mean: 109 Progress Note : Progress Note Seen and evaluated. IV, labs, UA and ultrasound pelvis ordered. Toradol 30 mg IV and fentanyl 50 g IV ordered. Monitor patient. 1535: Overall much improved with meds. Pending UA. Care transferred to Dr. Ellison pending urine results. (NORIS ROBISON MD) Diagnostic Imaging Diagonstic Imaging: Ultrasound Plain Films/CT/US/NM/MRI: chest Comments [place], [place] NAME: KINGSLEY JULIEN [facility] REC#: [id number] PT STATUS: REG ER : 1970 PHYSICIAN: NORIS ROBISON MD ADMIT DATE: 07/15/17/ER Draft Date of Exam:07/15/17 US NON OB PELVIS COMP/TRANSVAG INDICATION: Pelvic pain. TECHNIQUE: Multiple real-time grayscale images were obtained of the pelvis in various projections endovaginally. Transabdominal imaging was also performed. FINDINGS: The uterus measures 8.8 x 4.9 x 4.6 cm. The endometrium is 6 mm in thickness. No myometrial mass is detected. The right ovary measures 2.7 x 3.3 x 2.0 cm. There are small follicles on the right ovary. There is blood flow to the right ovary. Left ovary is obscured by bowel gas. No adnexal mass or free fluid is seen. IMPRESSION: Nonvisualized left ovary. The study is otherwise unremarkable. Dictated on workstation # [id number] Dict: 07/15/17 1526 Trans: 07/15/17 1536 [id number] Interpreted by: DONNA SMITH MD Electronically signed by: (NORIS ROBISON MD) Departure Impression Primary Impression: Menorrhagia, premenopausal Disposition: 01 HOME, SELF-CARE Condition: Improved Departure-Patient Inst. Decision time for Depature: 16:17 (BREA ELLISON MD) Referrals: GABRIEL OSULLIVAN DO (PCP) Primary Care Physician АННА CONSTANTINO (Family) Primary Care Physician Patient Instructions: Menstrual Cramps (DC) Add. Discharge Instructions: All discharge instructions reviewed with patient and/or family. Voiced understanding. Take plenty of fluids. Use ibuprofen 200 mg 3 tabs 3 times daily for menstrual pain or naproxen 220 two tabs twice daily. These can be used for the several days of your menstrual flow Scripts No Active Prescriptions or Reported Meds NORIS ROBISON MD July 15, 2017 15:42 BREA ELLISON MD July 15, 2017 16:20
[2017-07-15 15:55] LABS: CLARITY,URINE SLIGHTLY CLOUDY; GLUCOSE, URINE (UA) NEGATIVE (NEGATIVE); KETONES,URINE 1+ (NEGATIVE); LEUKOCYTE ESTERASE ,URINE 1+ (NEGATIVE); NITRITE,URINE NEGATIVE (NEGATIVE); PH,URINE 5 (5-9); PROTEIN,URINE 2+ (NEGATIVE); UROBILINOGEN,URINE 4 MG/DL (NORMAL)
[2017-07-15 15:57] LABS: BILIRUBIN,URINE 1+ (NEGATIVE); COLOR,URINE YELLOW
[2017-07-15 16:00] LABS: AMORPHOUS SEDIMENT,UR LARGE AMOR URATES /LPF; BACTERIA,URINE TRACE /HPF; SQUAMOUS EPITHELIAL CELL,UR 0-2 /HPF; WBC,URINE RARE /HPF
[2017-07-15 16:38] VITALS: BP 136/84
== END 2017-07-15 16:38 | disposition home or self-care (01) ==
LOC: EDUNIT# 12:53 → ER 12:55
DX: N92.4 Excessive bleeding in the premenopausal period (principal); G43.909 Migraine, unspecified, not intractable, without status migrainosus; K21.9 Gastro-esophageal reflux disease without esophagitis; F32.9 Major depressive disorder, single episode, unspecified; Z90.49 Acquired absence of other specified parts of digestive tract; Z98.51 Tubal ligation status; Z90.89 Acquired absence of other organs
CPT/HCPCS: 36415; 76830; 76856; 80053; 81000; 85025; 96374; 96375

== ENCOUNTER 2017-09-11 09:06 | Emergency (ER) | payer MEDICAID ==
[~2017-09-11] VITALS: Ht 157.5 cm; Wt 114.3 kg
[~2017-09-11 09:06] MED LIST changes: -CODE118S2 PO; +CODE118S4 PO
[2017-09-11] MEDS ORDERED: CYCL10TA9 (09:34)
[2017-09-11] MEDS ORDERED: PRD20T (09:34)
[2017-09-11] MEDS ORDERED: TRAM50TA2 (09:34)
[2017-09-11] MEDS ORDERED: DICL50TA4 (09:34)
--- NOTE | 2017-09-11 09:50 | ED Neck-Back Pain/Injury ---
General Chief Complaint: Head/Cervical Problems Stated Complaint: NECK PAIN RADIATES DOWN ARM,HEADACHE Nursing Triage Note: TO ED C/O NECK PAIN SINCE THE END OF JULY HAS BEEN TREATED BY [facility] WITH PAIN MEDS AND MUSCLE RELXANT WITH NO RELEIF C/O PAIN RADIATING DOWN L ARM. Nursing Sepsis Screen: No Definite Risk Source of Information: Patient Exam Limitations: No Limitations History of Present Illness Date Seen by Provider: Sep 11, 2017 Time Seen by Provider: 09:48 Initial Comments The patient is a 47-year-old white female with 47 previous contacts. She reports that during the first week of August she [facility] for complaints of pain in the neck and left arm. She was given some medications which did not help very much. She reported that she in fact had been having pain for 2-3 weeks prior to that. Ultimately a cervical spine film was done which did not make a diagnosis. She complains of shooting pains in the area of her left trapezius and scapula there is a burning pain and tingling going down the arm as well. She has subsequently been back to the clinic and saw Randall Quiroga and then Michell Gandhi. She continues to have pain without improvement with the medication programs which have included prednisone and tramadol. Pain/Injury Location: Neck Method of Injury: Unknown Allergies and Home Medications Allergies Coded Allergies: NKANo Known Allergies (Unverified Allergy, Unknown, 11/01/05) Patient Home Medication List Home Medication List Reviewed: Yes Constitutional: see HPI EENTM: no symptoms reported Respiratory: no symptoms reported Cardiovascular: no symptoms reported Gastrointestinal: no symptoms reported Genitourinary: no symptoms reported Musculoskeletal: no symptoms reported Skin: no symptoms reported Psychiatric/Neurological: No Symptoms Reported Past Jvakzyh-Smvltv-Evcrlm Hx Patient Social History Alcohol Use: Denies Use Recreational Drug Use: No Smoking Status: Never a Smoker 2nd Hand Smoke Exposure: No Recent Foreign Travel: No Contact w/Someone Who Travel: No Recent Infectious Disease Expo: No Recent Hopitalizations: No Immunizations Up To Date Tetanus Booster (TDap): Unknown Date of Influenza Vaccine: Jan 22, 2015 Seasonal Allergies Seasonal Allergies: Yes Past Medical History Surgeries: Yes (L KNEE) Adenoidectomy, Appendectomy, Orthopedic, Tonsillectomy, Tubal Ligation Respiratory: No Cardiac: No Neurological: Yes Headaches /Migraines 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 oz. 114.828087ll; 45.72 BMI Method:Stated General Appearance: Moderate Distress HEENT: Normal ENT Inspection Neck: Normal Inspection Cardiovascular: Regular Rate, Rhythm, No Edema, No Gallop, No JVD, No Murmur, Normal Peripheral Pulses Respiratory: Chest Non Tender, Lungs Clear, Normal Breath Sounds, No Accessory Muscle Use, No Respiratory Distress, Accessory Muscle Use Gastrointestinal: Normal Bowel Sounds, No Organomegaly, No Pulsatile Mass, Non Tender, Soft Back: Normal Inspection Extremity: Normal Capillary Refill, Normal Inspection, Normal Range of Motion, Non Tender Neurologic/Psychiatric: Alert, Oriented x3, No Motor/Sensory Deficits, Normal 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 Chairman biceps and triceps are normal. There is some pain to rightward flexion and rotation of the head Progress/Results/Core Measures Results/Orders Vital Signs/I&O 09/11/17 09:11 Temp 98.0 Pulse 83 Resp 18 B/P (MAP) 146/97 (113) Pulse Ox 98 O2 Delivery Room Air Blood Pressure Mean: 113 Departure Impression Primary Impression: cervical radiculitis Disposition: 01 HOME, SELF-CARE Condition: Stable/Unchanged Departure-Patient Inst. Decision time for Depature: 09:51 Referrals: GABRIEL OSULLIVAN DO (PCP) Primary Care Physician АННА CONSTANTINO (Family) Primary Care Physician Patient Instructions: Cervical Muscle Strain (DC) Add. Discharge Instructions: All discharge instructions reviewed with patient and/or family. Voiced understanding. Continue medications as presently prescribed. Use heat to the area Wednesday return to critical access hospital and insist on more definitive workup. BREA ELLISON MD Sep 11, 2017 09:50
[2017-09-11 11:52] VITALS: BP 146/97
== END 2017-09-11 11:52 | disposition home or self-care (01) ==
LOC: EDUNIT# 09:06 → ER 09:08
DX: M54.12 Radiculopathy, cervical region (principal); G43.909 Migraine, unspecified, not intractable, without status migrainosus; K21.9 Gastro-esophageal reflux disease without esophagitis; F32.9 Major depressive disorder, single episode, unspecified; Z90.49 Acquired absence of other specified parts of digestive tract; Z98.51 Tubal ligation status
CPT/HCPCS: 99282

== ENCOUNTER → 2017-09-16 | Outpatient (CLI) | payer MEDICAID ==
[~2017-09-16] MED LIST changes: +CYCL10TA9; +DICL50TA4; +PRD20T; +TRAM50TA2
--- NOTE | 2017-09-16 16:28 | Diagnostic Imaging Report ---
EXAM: MRI thoracic spine without contrast TECHNIQUE: Multiplanar images utilizing both T1 and T2-weighted sequences were obtained. COMPARISON: There are no previous MRI thoracic spine examinations available for comparison. FINDINGS: The CT thoracic and lumbar spine performed on 02/18/2015 failed to show an acute bony abnormality. On the T2 sagittal images of this exam, the vertebral body heights and alignment are within normal limits and the intervertebral spaces are fairly well-maintained. There is desiccation of the disc at every level. The thecal sac however, is relatively generous. There is no sign of spinal stenosis or nerve root encroachment at any level of the thoracic spine. However images through the lower cervical spine were also performed. There is a disc protrusion to the left at C5-6. The disc compresses the left ventral aspect of the thecal sac and narrows the AP diameter to 6.2 MM. There is also narrowing of the neural foramen on the right at this level. There is also a disc bulge eccentric to the right at C6-7. The disc compresses the right ventral aspect of the thecal sac resulting in mild spinal stenosis. There is also narrowing of the neural foramen on the right at this level. I would recommend a dedicated MR cervical spine exam be obtained for further evaluation of the C5-6 and C6-7 levels. There is no abnormal signal arising from the osseous structures to suggest bone edema or a fracture. There is no sign of a cord lesion. There is no paraspinal mass visualized. IMPRESSION: 1. There is no acute bony abnormality of the thoracic spine and there is no evidence for spinal stenosis or nerve root encroachment at any level. 2. There is spinal stenosis at C5-6 and narrowing of the neural foramen on the right at this level. There is also a disc bulge to the right at C6-7. A dedicated MRI cervical spine exam would be recommended for further evaluation of these findings. Dictated by: Dictated on workstation # [id number]
== END ==
LOC: RAD 08:24
PROVIDERS: ATTEND Nurse Practitioner Community Health
DX: M48.02 Spinal stenosis, cervical region (principal); M99.71 Connective tissue and disc stenosis of intervertebral foramina of cervical region; M50.223 Other cervical disc displacement at C6-C7 level
CPT/HCPCS: 72146

== ENCOUNTER → 2017-09-27 | Outpatient (CLI) | payer MEDICAID ==
--- NOTE | 2017-09-27 10:47 | Diagnostic Imaging Report ---
PROCEDURE: MR imaging cervical spine without contrast. INDICATION: Left arm and shoulder pain. No known injury. Pain between shoulder blades. TECHNIQUE: Multiplanar, multisequence MR imaging of the cervical spine was performed without contrast. CORRELATION STUDY: None FINDINGS: There is straightening and slight reversal of normal cervical lordosis. Cervical vertebral body heights are maintained. Odontoid intact. Craniocervical junction unremarkable. Visualized portions of the posterior fossa appearing unremarkable. C2-C3 level: Unremarkable. C3-C4 level: Slight loss of disc space height. There is slight midline disc bulge present. This does result in narrowing of spinal canal to 8 mm. Very slight flattening of the cord at this level. Neural foramina maintained. C4-C5 level: Slight loss of disc space height. Disc osteophyte formation is noted with some flattening of the ventral thecal sac. There is narrowing of the AP dimension of the spinal canal to 6 mm. Only a small amount of CSF noted posteriorly. Bilateral foraminal narrowing is present owing to disc osteophyte formation. C5-C6 level: Loss of disc space height. Rather significant disc protrusion is noted. This results in significant flattening of the ventral thecal sac and marked spinal canal narrowing. AP dimension of the spinal canal is at just under 5 mm. There is flattening of the cervical spinal cord. There is absence of any significant surrounding CSF. Disc osteophyte formation also extends in bilateral foramina with significant bilateral foraminal narrowing. C6-C7 level: Moderate loss of disc space height. Disc osteophyte formation does results in flattening of the ventral thecal sac. AP dimension of the spinal canal narrowed to just under 8 mm. Slight flattening of the cord. There is bilateral foraminal narrowing. There is asymmetric disc bulge into the right ventrolateral spinal canal with accentuated rather pronounced right ventral lateral spinal canal narrowing. C7-T1 level: Unremarkable. IMPRESSION: 1. Rather pronounced multifocal areas of cervical spinal canal and foraminal stenosis. Findings most severe at C5-C6 level where there is significant disc herniation which results in significant spinal canal and foraminal narrowing. Additional more prominent area at the C6-C7 level on the right. 2. Additional areas of significant spinal canal narrowing and foraminal narrowing, including C3-C4 and C4-C5 levels. Dictated by: Dictated on workstation # [id number]
== END ==
LOC: RAD 06:57
PROVIDERS: ATTEND Nurse Practitioner Community Health
DX: M48.02 Spinal stenosis, cervical region (principal); M99.71 Connective tissue and disc stenosis of intervertebral foramina of cervical region
CPT/HCPCS: 72141

== ENCOUNTER 2018-07-18 20:10 | Emergency (ER) | payer OTHER, MEDICAID ==
[~2018-07-18] VITALS: Ht 157.5 cm; Wt 107.5 kg
[~2018-07-18 20:10] MED LIST changes: -BENZ-13 PO; +BENZ100C18 PO; -HYDR-3454 PO; +HYDR-3455 PO; +HYDR-4226 PO; -HYDR-757 PO
--- NOTE | 2018-07-18 20:33 | ED General ---
General Chief Complaint: General Problems/Pain Stated Complaint: NECK/BACK PAIN,L ARM PAIN X3 DAYS Nursing Triage Note: PT STATES SHE HAD A PREVIOUS BACK SURGERY, STATES SHE IS HAVING SOME OF THE SAME SYMPTOMS SHE HAD BEFORE HER BACK SURGERY WHICH INCLUDES L ARM PAIN WITH NUMBNESS AND TINGLING Nursing Sepsis Screen: No Definite Risk Source of Information: Patient Exam Limitations: No Limitations History of Present Illness Date Seen by Provider: July 18, 2018 Time Seen by Provider: 20:15 Initial Comments This 48-year-old woman presents to the emergency room with complaints of pain in the lower neck that radiates down through the shoulder and left arm. She has associated numbness and tingling in the left elbow and hand. With coughing she feels a popping sensation in the left shoulder/axilla. She also has a small patch of numbness on the skin lateral to the left knee. She denies any bowel or bladder dysfunction other than some chronic stress incontinence/frequency. Symptoms started on Wednesday, July 15 and have been intense since then. Symptoms are very similar to those she had with stenosis requiring urgent surgery in October [address] Palacios at [facility]. She has not had recurrent problems until the last few days. She is taking no medications for these symptoms at present. Allergies and Home Medications Allergies Coded Allergies: NKANo Known Allergies (Unverified Allergy, Unknown, 11/01/05) Patient Home Medication List Home Medication List Reviewed: Yes Review of Systems Review of Systems Constitutional: no symptoms reported EENTM: no symptoms reported Respiratory: no symptoms reported Cardiovascular: no symptoms reported Gastrointestinal: no symptoms reported Genitourinary: no symptoms reported : No Musculoskeletal: see HPI Skin: no symptoms reported Psychiatric/Neurological: See HPI Hematologic/Lymphatic: No Symptoms Reported Past Tdlumdt-Uezktd-Evcdae Hx Past Med/Social Hx: Reviewed and Corrections made Patient Social History 2nd Hand Smoke Exposure: No Recent Foreign Travel: No Contact w/Someone Who Travel: No Recent Infectious Disease Expo: No Recent Hopitalizations: No Immunizations Up To Date Tetanus Booster (TDap): Unknown Date of Influenza Vaccine: Jan 22, 2015 Seasonal Allergies Seasonal Allergies: Yes Past Medical History Surgeries: Yes Adenoidectomy, Appendectomy, Orthopedic (bilateral meniscus repairs. 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 oz. 107.408595xw; 45.72 BMI Method:Stated General Appearance: No Apparent Distress, WD/WN HEENT: PERRL/EOMI, Normal ENT Inspection Neck: Normal Inspection, Supple Respiratory: Lungs Clear, Normal Breath Sounds, No Accessory Muscle Use, No Respiratory Distress Cardiovascular: Regular Rate, Rhythm, No Edema, No Murmur Back: Vertebral Tenderness (over the lower cervical spine in the area of C6 through T1), Other (tenderness in the upper paraspinous muscles and trapezius. ) Extremity: Normal Inspection, Non Tender, Other (normal radial pulse. Decreased range of abduction of the left shoulder due to pain) Neurologic/Psychiatric: Alert, Oriented x3, Normal Mood/Affect, Sensory Deficit (small patch of decreased sensation on the lateral aspect of the left knee. Supervisor Molding strength 4/5 on the left as compared to 5 over 5 on the right) Skin: Normal Color, Warm/Dry Progress/Results/Core Measures Suspected Sepsis Recent Fever Within 48 Hours: No Infection Criteria Present: None New/Unexplained Altered Menta: No Sepsis Screen: No Definite Risk SIRS Temperature:98.0 Pulse: 83 Respiratory Rate: 18 Blood Pressure 168 /92 Mean: 117 Results/Orders My Orders Orders - DEEPIKA PIERRE MD Ct Cervical Spine Wo (07/18/18 20:27) Prednisone Tablet (Deltasone Tablet) (07/18/18 21:00) Gabapentin Capsule/Tablet (Neurontin Cap (07/18/18 21:00) Vital Signs/I&O 07/18/18 20:20 Temp 98.0 Pulse 83 Resp 18 B/P (MAP) 168/92 (117) Pulse Ox 98 O2 Delivery Room Air Capillary Refill : Less Than 3 Seconds Blood Pressure Mean: 117 Progress Note #1: Time: 20:37 Progress Note I discussed risks and benefits of CT scan with the patient including risk of radiation exposure and limitations of imaging, especially in the context of hardware present. Patient would like to proceed with CT scan for gross examination of the hardware and cervical spine structures. Plan and disposition will be based on results of the CT. Progress Note #2: Progress Note CT scan revealed no critical findings. Follow-up MRI and prompt follow-up with her neurosurgeon were recommended. Patient was treated with prednisone and gabapentin with her first doses given in the ER and prescriptions to follow. Diagnostic Imaging Diagonstic Imaging: CT Plain Films/CT/US/NM/MRI: c-spine Comments CT cervical spine viewed by me and report reviewed. See report below: NAME: KINGSLEY JULIEN MED REC#: [id number] PT STATUS: REG ER : 1970 PHYSICIAN: DEEPIKA PIERRE MD ADMIT DATE: 07/18/18/ER Draft Date of Exam:07/18/18 CT CERVICAL SPINE WO PROCEDURE: CT cervical spine without contrast. TECHNIQUE: Multiple contiguous axial images were obtained through the cervical spine without the use of intravenous contrast. Sagittal and coronal reformations were then performed. Auto Exposure Controls were utilized during the CT exam to meet ALARA standards for radiation dose reduction. INDICATION: Arm pain and numbness. FINDINGS: There is straightening of the normal cervical lordosis. There are post surgical changes of an anterior cervical disc fusion from C4-C7 with plate and screws. Hardware is in satisfactory position. The vertebral body heights are well-maintained. There is no fracture or traumatic subluxation. The odontoid is intact. The lateral masses are well aligned. Prevertebral soft tissues are within normal limits. The lung apices are clear. There is no bony encroachment upon the spinal canal. IMPRESSION: 1. Stable post surgical changes of an anterior cervical fusion from C4-C7 without bony encroachment on the spinal canal or other acute abnormality. In light of the patient's neurologic symptoms, further evaluation with an MRI cervical spine on a nonemergent basis is recommended. Dictated on workstation # [id number] Dict: 07/18/182045 Trans: 07/18/182051 [facility] [id number] Interpreted by: SHIRA OBRIEN MD Departure Impression Primary Impression: Cervical radiculopathy Additional Impression: Neck pain Disposition: 01 HOME, SELF-CARE Condition: Improved Departure-Patient Inst. Decision time for Depature: 21:00 Referrals: GABRIEL OSULLIVAN DO (PCP) Primary Care Physician АННА CONSTANTINO (Family) Primary Care Physician DEEPIKA PALACIOS DO Patient Instructions: Radiculopathy Add. Discharge Instructions: For her generalized pain management you may take ibuprofen up to 600 mg every 6 hours and/or Tylenol (acetaminophen) up to 1000 mg every 6 hours. For nerve related pain, especially pain that involves numbness and tingling, you may use gabapentin as prescribed. Use steroids pregnancies prednisone) as prescribed until otherwise instructed. Contact Dr. Palacios's office first thing tomorrow morning for follow-up. Return to the ER promptly if you develop worsening symptoms including worsening weakness, loss of balance, leg weakness, numbness in the groin, difficulty controlling bowels or bladder, or any other significant symptoms. Consider presenting to [facility] if possible and time allows as they have more extensive MRI and neurosurgical services. All discharge instructions reviewed with patient and/or family. Voiced understanding. Scripts Gabapentin (Gabapentin) 300 Mg Capsule 300 MG PO BID PRN for PAIN-MODERATE TO SEVERE, #10 CAP Prov: DEEPIKA PIERRE MD 07/18/18 Prednisone (Prednisone) 20 Mg Tab 40 MG PO DAILY, #6 TAB 0 Refills Prov: DEEPIKA PIERRE MD 07/18/18 Copy Copies To 1: DEEPIKA PALACIOS DO Copies To 2: GABRIEL OSULLIVAN JOSHUA T MD July 18, 2018 20:33
--- NOTE | 2018-07-18 20:53 | Diagnostic Imaging Report ---
PROCEDURE: CT cervical spine without contrast. TECHNIQUE: Multiple contiguous axial images were obtained through the cervical spine without the use of intravenous contrast. Sagittal and coronal reformations were then performed. Auto Exposure Controls were utilized during the CT exam to meet ALARA standards for radiation dose reduction. INDICATION: Arm pain and numbness. FINDINGS: There is straightening of the normal cervical lordosis. There are post surgical changes of an anterior cervical disc fusion from C4-C7 with plate and screws. Hardware is in satisfactory position. The vertebral body heights are well-maintained. There is no fracture or traumatic subluxation. The odontoid is intact. The lateral masses are well aligned. Prevertebral soft tissues are within normal limits. The lung apices are clear. There is no bony encroachment upon the spinal canal. IMPRESSION: 1. Stable post surgical changes of an anterior cervical fusion from C4-C7 without bony encroachment on the spinal canal or other acute abnormality. In light of the patient's neurologic symptoms, further evaluation with an MRI cervical spine on a nonemergent basis is recommended. Dictated by: Dictated on workstation # [id number]
[2018-07-18] MEDS ORDERED: predniSONE 20 MG TAB PO ONE (21:00)
[2018-07-18] MEDS ORDERED: GABAPENTIN 300 MG (NEURONTIN) CAP PO ONE (21:00)
[2018-07-18] MEDS ORDERED: GABA-488 PO (21:05)
[2018-07-18] MEDS ORDERED: PRD20T PO (21:05)
[2018-07-18 21:12] VITALS: BP 155/84
== END 2018-07-18 21:14 | disposition home or self-care (01) ==
LOC: EDUNIT# 20:10 → ER 20:13
DX: M54.12 Radiculopathy, cervical region (principal); G43.909 Migraine, unspecified, not intractable, without status migrainosus; K21.9 Gastro-esophageal reflux disease without esophagitis; F32.9 Major depressive disorder, single episode, unspecified; Z90.49 Acquired absence of other specified parts of digestive tract; Z98.890 Other specified postprocedural states; Z98.51 Tubal ligation status; Z98.1 Arthrodesis status
CPT/HCPCS: 72125

== ENCOUNTER → 2018-07-25 | Emergency (ER) | payer OTHER, MEDICAID | LOC: ER 22:27 ==

== ENCOUNTER 2018-09-12 15:35 | Outpatient (RCR) | payer OTHER, MEDICAID ==
[~2018-09-12 15:35] MED LIST changes: -DULO20CA18; +DULO20CA19; +GABA-488 PO
== END 2018-09-27 13:21 | disposition home or self-care (01) ==
PROVIDERS: ATTEND Orthopaedic Surgery
DX: R20.0 Anesthesia of skin (principal); Z98.1 Arthrodesis status

== ENCOUNTER 2018-12-01 21:41 | Emergency (ER) | payer OTHER, MEDICAID ==
[~2018-12-01] VITALS: Ht 157 cm; Wt 113.6 kg
[2018-12-01] MEDS ORDERED: KETOROLAC 30 MG/ML VIAL IVP ONE (22:15)
[2018-12-01] MEDS ORDERED: HYOSCYAMINE 0.125 MG (LEVSIN) TAB SL ONE (22:15)
[2018-12-01 22:22] LABS: BASOPHILS # (AUTO) 0.1 10^3/uL (0.0-0.1); BASOPHILS % (AUTO) 1 % (0-10); EOSINOPHILS # (AUTO) 0.4 10^3/uL (0.0-0.3); EOSINOPHILS % (AUTO) 4 % (0-10); HEMATOCRIT 35 % (35-52); HEMOGLOBIN 11.1 G/DL (11.5-16.0); LYMPHOCYTES # (AUTO) 2.9 X 10^3 (1.0-4.0); LYMPHOCYTES % (AUTO) 30 % (12-44); MEAN CORPUSCULAR HEMOGLOBIN 22 PG (25-34); MEAN CORPUSCULAR HGB CONC 32 G/DL (32-36); MEAN CORPUSCULAR VOLUME 70 FL (80-99); MEAN PLATELET VOLUME 10.5 FL (7.4-10.4); MONOCYTES # (AUTO) 0.7 X 10^3 (0.0-1.0); MONOCYTES % (AUTO) 7 % (0-12); NEUTROPHILS # (AUTO) 5.7 X 10^3 (1.8-7.8); NEUTROPHILS % (AUTO) 58 % (42-75); PLATELET COUNT 340 10^3/uL (130-400); RED CELL DISTRIBUTION WIDTH 16.2 % (10.0-14.5); WHITE BLOOD COUNT 9.8 10^3/uL (4.3-11.0)
[2018-12-01] MEDS ORDERED: medroxyPROGESTERone 10 MG (PROVERA) TAB PO ONE (22:30)
[2018-12-01 22:41] LABS: ALANINE AMINOTRANSFERASE 18 U/L (0-55); ALBUMIN 4.7 GM/DL (3.2-4.5); ALKALINE PHOSPHATASE 96 U/L (40-136); BILIRUBIN,TOTAL 0.4 MG/DL (0.1-1.0); BUN/CREATININE RATIO 12; CALCIUM 9.3 MG/DL (8.5-10.1); CARBON DIOXIDE 23 MMOL/L (21-32); CHLORIDE 105 MMOL/L (98-107); CREATININE SERUM 0.76 MG/DL (0.60-1.30); GFR ESTIMATED > 60; GLUCOSE 113 MG/DL (70-105); POTASSIUM 3.3 MMOL/L (3.6-5.0); SODIUM 139 MMOL/L (135-145); TOTAL PROTEIN 8.2 GM/DL (6.4-8.2)
[2018-12-01 23:01] LABS: TSH (THYROID ANALYZER) 2.43 UIU/ML (0.35-4.94)
--- NOTE | 2018-12-01 23:16 | NUR ---
Report given to MAYA Moon to assume care of pt @ this time.
--- NOTE | 2018-12-01 23:24 | ED GU-Female ---
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 Pt reports she has been on her menstrual cycle since 11/01/18 and has increased vaginal bleeding. Pt reports throughout this day she has bled through >20 super tampons. Pt reports bleeding to be accompanied by bilat lower abd cramping. Pt rpeorts bright red bleeding with clots. Denies fever or chills. Nursing Sepsis Screen: No Definite Risk Source: patient Exam Limitations: no limitations History of Present Illness Date Seen by Provider: Dec 01, 2018 Time Seen by Provider: 22:02 Initial Comments This 48 old woman presents to the emergency room with complaints of persistent vaginal bleeding since November 01. Bleeding has become progressively worse. She has gone through 20 heavy duty tampons since waking up today. She is also had an escalation in cramping in the pelvic region bilaterally and aching in the back. She took Tylenol and ibuprofen around 18:00 and is still having significant pain. She came to the ER because she could not wait to follow-up as an outpatient. She denies any secondary signs of severe anemia such as shortness of breath, lightheadedness, or racing heart. She denies as she has had a tubal ligation and her is sterile. Her primary care provider is Nathalie Constantino. She denies any use of blood thinning agents or hormonal medications. Allergies and Home Medications Allergies Coded Allergies: Sophy Known Allergies (Unverified Allergy, Unknown, 11/01/05) Home Medications Azithromycin 250 Mg Tablet, 250 MG PO DAILY Prescribed by: NORIS ROBISON on 07/25/18 234 Gabapentin 300 Mg Capsule, 300 MG PO BID PRN for PAIN-MODERATE TO SEVERE Prescribed by: DEEPIKA AGUIRRE on 07/18/18 210 Hydrocodone Bit/Acetaminophen 1 Tab Tab, 1 EACH PO Q4-6HR PRN for PAIN-MODERATE Prescribed by: DEEPIKA AGUIRRE on 12/01/18 233 Hyoscyamine Sulfate 0.125 Mg Tab.subl, 0.125 MG SL Q4H PRN for CRAMPS Prescribed by: DEEPIKA AGUIRRE on 12/01/18 233 Medroxyprogesterone Acetate 10 Mg Tablet, 10 MG PO DAILY Prescribed by: DEEPIKA AGUIRRE on 12/01/18 2335 Prednisone 20 Mg Tab, 40 MG PO DAILY Prescribed by: DEEPIKA AGUIRRE on 07/18/182104 Prednisone 20 Mg Tab, 40 MG PO DAILY Prescribed by: NORIS ROBISON on 07/25/18 2349 Promethazine HCl/Codeine 118 Ml Syrup, 5 ML PO Q6H PRN for COUGH Prescribed by: NORIS ROBISON on 07/26/18 0015 Patient Home Medication List Home Medication List Reviewed: Yes Review of Systems Review of Systems Constitutional: no symptoms reported EENTM: no symptoms reported Respiratory: no symptoms reported Cardiovascular: no symptoms reported Gastrointestinal: no symptoms reported Genitourinary: see HPI : No LMP: Nov 01, 2018 Musculoskeletal: no symptoms reported Skin: no symptoms reported Psychiatric/Neurological: No Symptoms Reported Endocrine: No Symptoms Reported Hematologic/Lymphatic: No Symptoms Reported Past Pjbyrdz-Zatwkv-Pcbwoo Hx Past Med/Social Hx: Reviewed and Corrections made Patient Social History Alcohol Use: Denies Use Recreational Drug Use: No Smoking Status: Never a Smoker 2nd Hand Smoke Exposure: No Recent Foreign Travel: No Contact w/Someone Who Travel: No Recent Infectious Disease Expo: No Recent Hopitalizations: No Immunizations Up To Date Tetanus Booster (TDap): Unknown Date of Influenza Vaccine: Jan 22, 2015 Seasonal Allergies Seasonal Allergies: Yes Past Medical History Surgeries: Yes Adenoidectomy, Appendectomy, Orthopedic (C-spine fusion), Tonsillectomy, Tubal Ligation Respiratory: No Cardiac: No Neurological: Yes Headaches /Migraines Reproductive Disorders: No 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 oz. 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, no motor/sensory deficits, alert, normal mood/affect, oriented x 3 Skin: normal color, warm/dry Progress/Results/Core Measures Suspected Sepsis Recent Fever Within 48 Hours: No Infection Criteria Present: None New/Unexplained Altered Menta: No Sepsis Screen: No Definite Risk SIRS Temperature: Pulse: 84 Respiratory Rate: 17 Laboratory Tests 12/01/18 22:14: White Blood Count 9.8 Blood Pressure 174 /98 Mean: 123 Laboratory Tests 12/01/18 22:14: Creatinine 0.76, Platelet Count 340, Total Bilirubin 0.4 Results/Orders Lab Results Laboratory Tests Test 12/01/18 22:14 Range/Units White Blood Count 9.8 4.3-11.0 10^3/uL Red Blood Count 4.96 4.35-5.85 10^6/uL Hemoglobin 11.1 L 11.5-16.0 G/DL Hematocrit 35 35-52 % Mean Corpuscular Volume 70 L 80-99 FL Mean Corpuscular Hemoglobin 22 L 25-34 PG Mean Corpuscular Hemoglobin Concent 32 32-36 G/DL Red Cell Distribution Width 16.2 H 10.0-14.5 % Platelet Count 340 130-400 10^3/uL Mean Platelet Volume 10.5 H 7.4-10.4 FL Neutrophils (%) (Auto) 58 42-75 % Lymphocytes (%) (Auto) 30 12-44 % Monocytes (%) (Auto) 7 0-12 % Eosinophils (%) (Auto) 4 0-10 % Basophils (%) (Auto) 1 0-10 % Neutrophils # (Auto) 5.7 1.8-7.8 X 10^3 Lymphocytes # (Auto) 2.9 1.0-4.0 X 10^3 Monocytes # (Auto) 0.7 0.0-1.0 X 10^3 Eosinophils # (Auto) 0.4 H 0.0-0.3 10^3/uL Basophils # (Auto) 0.1 0.0-0.1 10^3/uL Sodium Level 139 135-145 MMOL/L Potassium Level 3.3 L 3.6-5.0 MMOL/L Chloride Level 105 98-107 MMOL/L Carbon Dioxide Level 23 21-32 MMOL/L Anion Gap 11 5-14 MMOL/L Blood Urea Nitrogen 9 7-18 MG/DL Creatinine 0.76 0.60-1.30 MG/DL Estimat Glomerular Filtration Rate > 60 BUN/Creatinine Ratio 12 Glucose Level 113 H 70-105 MG/DL Calcium Level 9.3 8.5-10.1 MG/DL Corrected Calcium 8.5-10.1 MG/DL Total Bilirubin 0.4 0.1-1.0 MG/DL Aspartate Amino Transf (AST/SGOT) 18 5-34 U/L Alanine Aminotransferase (ALT/SGPT) 18 0-55 U/L Alkaline Phosphatase 96 40-136 U/L Total Protein 8.2 6.4-8.2 GM/DL Albumin 4.7 H 3.2-4.5 GM/DL TSH [place] Testing 2.43 0.35-4.94 UIU/ML Serum Test, Qualitative NEGATIVE NEGATIVE My Orders Orders - DEEPIKA PIERRE MD Cbc With Automated Diff (12/01/18 22:12) Comprehensive Metabolic Panel (12/01/18 22:12) Hcg,Qualitative Serum (12/01/18 22:12) Thyroid Analyzer (12/01/18 22:12) Ed Iv/Invasive Line Start (12/01/18 22:12) Hyoscyamine Sl Tablet (Levsin Sl Tablet) (12/01/18 22:15) Ketorolac Injection (Toradol Injection) (12/01/18 22:15) Medroxyprogesterone Tablet (Provera Tabl (12/01/18 22:30) Potassium Chloride (Tablet) (Klor Con Ta (12/01/18 23:30) Medications Given in ED Current Medications Medications Dose Ordered Sig/Kindra Route Start Time Stop Time Status Last Admin Dose Admin Hyoscyamine Sulfate 0.25 mg ONCE ONCE SL 12/01/18 22:15 12/01/18 22:16 DC 12/01/18 22:25 0.25 MG Ketorolac Tromethamine 30 mg ONCE ONCE IVP 12/01/18 22:15 10/10/19 22:16 DC 12/01/18 22:26 30 MG Medroxyprogesterone Acetate 10 mg ONCE ONCE PO 12/01/18 22:30 12/01/18 22:31 DC 12/01/18 22:44 10 MG Potassium Chloride 20 meq ONCE ONCE PO 12/01/18 23:30 12/01/18 23:31 DC 12/01/18 23:27 20 MEQ Vital Signs/I&O 12/01/18 12/01/18 22:07 23:49 Temp 35.6 Pulse 84 67 Resp 17 18 B/P (MAP) 174/98 (123) 118/61 (123) Pulse Ox 100 98 O2 Delivery Room Air Capillary Refill : Less Than 3 Seconds Blood Pressure Mean: 123 Progress Note : Progress Note Workup was unremarkable. Patient's pain was treated with Toradol and Levsin with good results. She declined hydrocodone. Dysfunctional uterine bleeding was treated with Provera 10 mg orally. This will be continued as an outpatient. She was also given potassium replacement for mild hypokalemia. In order form for a pelvic ultrasound was given to have a stat study done tomorrow morning. Departure Impression Primary Impression: Dysfunctional uterine bleeding Additional Impressions: Acute pelvic pain Hypokalemia Disposition: 01 HOME, SELF-CARE Condition: Improved Departure-Patient Inst. Decision time for Depature: 23:25 Referrals: [facility]/LEEANNA (PCP) Primary Care Physician NATHALIE CONSTANTINO (Family) Primary Care Physician Add. Discharge Instructions: Drink plenty of clear liquids to stay well-hydrated and eat a well-balanced diet. You may take ibuprofen up to 600 mg every 6 hours as needed for pain. You may add either Tylenol (acetaminophen) or hydrocodone as prescribed to the ibuprofen for additional pain relief. Use Levsin (hyoscyamine) as prescribed for cramping. Continue using Provera for 10 days total. This will hopefully stop the bleeding and reset your cycles. You should have withdrawal bleeding a couple days after you stop the Provera. Return to the hospital at approximately 7:30 tomorrow morning to obtain an ultrasound. Please bring your ultrasound order form with you. Return to the emergency room if you have worsening symptoms despite these treatments. Follow-up with Nathalie Constantino as soon as possible. Please call tomorrow morning for an appointment. All discharge instructions reviewed with patient and/or family. Voiced understanding. Scripts Hydrocodone Bit/Acetaminophen (Hydrocodone/Acetaminophen 5/325mg Tablet) 1 Tab Tab 1 EACH PO Q4-6HR PRN for PAIN-MODERATE MDD 10, #10 TAB Prov: DEEPIKA PIERRE MD 12/01/18 Hyoscyamine Sulfate (Levsin-Sl) 0.125 Mg Tab.subl 0.125 MG SL Q4H PRN for CRAMPS, #10 TAB 0 Refills Prov: DEEPIKA PIERRE MD 12/01/18 Medroxyprogesterone Acetate (Provera) 10 Mg Tablet 10 MG PO DAILY, #9 TAB Prov: DEEPIKA PIERRE MD 12/01/18 Work/School Note: Work Release Form Date Seen in the Emergency Department: Dec 01, 2018 Return to Work: Dec 03, 2018 Restrictions: No Restrictions Copy Copies To 1: GABRIEL OSULLIVAN JOSHUA T MD Dec 01, 2018 23:24
[2018-12-01] MEDS ORDERED: KCL 10 MEQ TAB (MICRO K) PO ONE (23:30)
[2018-12-01] MEDS ORDERED: ACHD5005 PO (23:35)
[2018-12-01] MEDS ORDERED: HYOS0.1283 SL (23:35)
[2018-12-01] MEDS ORDERED: MEDR10TA PO (23:35)
[2018-12-01 23:49] VITALS: BP 118/61
== END 2018-12-01 23:49 | disposition home or self-care (01) ==
LOC: EDUNIT# 21:41 → ER 21:42
DX: N93.9 Abnormal uterine and vaginal bleeding, unspecified (principal); R10.2 Pelvic and perineal pain; E87.6 Hypokalemia; G43.909 Migraine, unspecified, not intractable, without status migrainosus; K21.9 Gastro-esophageal reflux disease without esophagitis; F32.9 Major depressive disorder, single episode, unspecified; Z98.51 Tubal ligation status; Z79.52 Long term (current) use of systemic steroids; Z90.49 Acquired absence of other specified parts of digestive tract; Z90.89 Acquired absence of other organs
CPT/HCPCS: 36415; 80053; 84443; 84703; 85025; 96374

== ENCOUNTER → 2018-12-02 | Outpatient (CLI) | payer OTHER, MEDICAID ==
[~2018-12-02] MED LIST changes: +HYOS0.1283 SL; +MEDR10TA PO
--- NOTE | 2018-12-02 08:55 | Diagnostic Imaging Report ---
PROCEDURE: US Non-ob pelvis comp/trans. TECHNIQUE: Multiple realtime grayscale images were obtained of the pelvis in various projections endovaginally. Transabdominal imaging was also performed. INDICATION: Dysfunctional uterine bleeding and pelvic pain. The uterus measures 9.1 x 6.7 x 5.0 cm. Endometrium is 8 mm in thickness. Trace fluid within the endometrial canal is noted. No myometrial mass is seen. The right ovary measures 2.5 x 1.9 x 1.8 cm and the left ovary measures 2.8 x 2.9 x 1.4 cm. Both ovaries contain follicles. There is blood flow to both ovaries. No adnexal mass or free fluid is seen. IMPRESSION: Unremarkable pelvic ultrasound. Dictated by: Dictated on workstation # [id number]
== END ==
LOC: RAD 07:41
PROVIDERS: ATTEND Family Medicine
DX: N93.8 Other specified abnormal uterine and vaginal bleeding (principal); R10.2 Pelvic and perineal pain
CPT/HCPCS: 76830; 76856

== ENCOUNTER 2019-02-08 06:11 | Outpatient (CLI) | payer MEDICAID ==
[~2019-02-08] VITALS: Ht 157.5 cm; Wt 104.1 kg
[2019-02-08] MEDS ORDERED: CETI10TA17 PO (11:51)
== END 2019-02-08 12:53 | disposition home or self-care (01) ==
LOC: PREOP 06:11
PROVIDERS: ATTEND Obstetrics & Gynecology
DX: Z01.818 Encounter for other preprocedural examination (principal)

== ENCOUNTER 2019-02-13 07:04 | Day surgery (SDC) | payer MEDICAID ==
[2019-02-13] VITALS (10 sets, daily range): BP systolic 118–128; BP diastolic 58–74
[~2019-02-13] VITALS: Ht 157.5 cm; Wt 104.1 kg
[2019-02-13] MEDS ORDERED: LACTATED RINGERS 1,000 ML IV PRN (07:17)
[2019-02-13] MEDS ORDERED: BUPIVACAINE 0.25% 30 ML (SENSORCAINE) VIAL ONE (07:28)
[2019-02-13 07:29] LABS: BASOPHILS # (AUTO) 0.1 10^3/uL (0.0-0.1); BASOPHILS % (AUTO) 1 % (0-10); EOSINOPHILS # (AUTO) 0.4 10^3/uL (0.0-0.3); EOSINOPHILS % (AUTO) 4 % (0-10); HEMATOCRIT 35 % (35-52); HEMOGLOBIN 10.8 G/DL (11.5-16.0); LYMPHOCYTES # (AUTO) 2.6 X 10^3 (1.0-4.0); LYMPHOCYTES % (AUTO) 31 % (12-44); MEAN CORPUSCULAR HEMOGLOBIN 21 PG (25-34); MEAN CORPUSCULAR HGB CONC 31 G/DL (32-36); MEAN CORPUSCULAR VOLUME 67 FL (80-99); MEAN PLATELET VOLUME 10.4 FL (7.4-10.4); MONOCYTES # (AUTO) 0.7 X 10^3 (0.0-1.0); MONOCYTES % (AUTO) 8 % (0-12); NEUTROPHILS # (AUTO) 4.8 X 10^3 (1.8-7.8); NEUTROPHILS % (AUTO) 56 % (42-75); PLATELET COUNT 380 10^3/uL (130-400); RED CELL DISTRIBUTION WIDTH 17.1 % (10.0-14.5); WHITE BLOOD COUNT 8.5 10^3/uL (4.3-11.0)
[2019-02-13] MEDS ORDERED: MEDR10TA PO (08:18)
[2019-02-13] MEDS ORDERED: D5 LR IV SOLUTION 1,000 ML IV SCH (08:24)
--- NOTE | 2019-02-13 08:24 | Progress Note-Pre Operative ---
Pre-Operative Progress Note H&P Reviewed The H&P was reviewed, patient examined and no changes noted. Date Seen by Provider: Feb 13, 2019 Time Seen by Provider: 08:20 Date H&P Reviewed: Feb 13, 2019 Time H&P Reviewed: 08:20 Pre-Operative Diagnosis: AUB, BMI 42 RAJI JOHNSON DO Feb 13, 2019 08:24
[2019-02-13] MEDS ORDERED: MIDAZOLAM 2 MG/2 ML (VERSED) VIAL ONE (08:25)
[2019-02-13] MEDS ORDERED: fentaNYL INJECTION 100 MCG/2 ML AMP ONE (08:25)
[2019-02-13] MEDS ORDERED: IBUP-1773 PO (08:27)
--- NOTE | 2019-02-13 08:27 | Discharge Inst-Women's Service ---
Discharge Inst-Women's Serv Depart Medication/Instructions New, Converted or Re-Newed RX: RX on Chart Problems Reviewed?: Yes Consults/Follow Up Additional Follow Up: Yes Orders/Referrals Dr. Johnson in 3 weeks Activity Activity: Activity as Tolerated Driving Instructions: No Driving for 1 Week NO SMOKING: NO SMOKING Nothing Inside Vagina: No Douching, No [employer], No Tampons Diet Discharge Diet: No Restrictions Symptoms to Report to : Bleeding Excessive, Pain Increased, Fever Over 101 Degrees F, Vaginal Bleeding Increase, Questions/Concerns For Any Problems or Questions: Contact Your Physician RAJI JOHNSON DO Feb 13, 2019 08:27
[2019-02-13] MEDS ORDERED: ONDANSETRON 4 MG/2 ML (SDV) Z0FRAN IVP PRN (08:30)
[2019-02-13] MEDS ORDERED: HYDROcodone/APAP 5 MG/325 MG (LORTAB) TAB PO PRN (08:30)
[2019-02-13] MEDS ORDERED: KETOROLAC 30 MG/ML VIAL IVP ONE (08:30)
[2019-02-13] MEDS ORDERED: proPOfol 200 MG/20 ML (DIPRIVAN) VIAL IV ONE (08:55)
[2019-02-13] MEDS ORDERED: DEXAMETHASONE 10 MG/ML (DECADRON) 1 ML VIAL ONE (08:55)
[2019-02-13] MEDS ORDERED: ONDANSETRON 4 MG/2 ML (SDV) Z0FRAN ONE (08:55)
[2019-02-13] MEDS ORDERED: LIDOCAINE PF 2% 5 ML (XYLOCAINE) VIAL ONE (08:55)
[2019-02-13] MEDS ORDERED: SEVOFLURANE (ULTANE) 15 ML INHAL SOLN ONE ×2 (08:55)
--- NOTE | 2019-02-13 09:40 | NUR ---
TO AMB SURG FROM PAR PER CART. ALERT, CHEERFUL, DENIES COMPLAINTS. V-PAD IN PLACE, SCANT BLOODY DRAINAGE ON PAD. PO FLUIDS PROVIDED.
--- NOTE | 2019-02-13 10:42 | NUR ---
HAS BEEN UP TO BR WITH ASSIST, ALERT, GAIT STEADY, VOIDS WITHOUT PROBLEM. CONTINUES TO HAVE ONLY SCANT AMOUNT OF BLOODY DRAINAGE ON V-PAD. DENIES COMPLAINTS. STATES SHE IS READY FOR DISMISSAL.
--- NOTE | 2019-02-13 11:14 | Anesthesia-General Post-Op ---
General Patient Condition Mental Status/LOC: Same as Preop Cardiovascular: Satisfactory Nausea/Vomiting: Absent Respiratory: Satisfactory Pain: Controlled Complications: Absent Post Op Complications Complications None Follow Up Care/Instructions Patient Instructions None needed. Anesthesia/Patient Condition Patient Condition Patient is doing well, no complaints, stable vital signs, no apparent adverse anesthesia problems. No complications reported per nursing. RUTH BRIONES CRNA Feb 13, 2019 11:14
--- NOTE | 2019-02-13 15:21 | OPERATIVE REPORT ---
DATE OF SERVICE: PREOPERATIVE DIAGNOSES: 1. A 48-year-old female with abnormal uterine bleeding. 2. BMI of 42. POSTOPERATIVE DIAGNOSES: 1. A 48-year-old female with abnormal uterine bleeding. 2. BMI of 42. PROCEDURE PERFORMED: D and C. SURGEON: Raji Johnson DO ANESTHESIA: General endotracheal. ESTIMATED BLOOD LOSS: Minimal. URINE OUTPUT: 100 mL clear drained at the end of the procedure. FLUIDS: 200 mL lactated Ringer's solution. FINDINGS: Grossly normal-appearing external female genitalia with a small to moderate amount of endometrial curetting. SPECIMEN SENT: Endometrial curettings. INDICATIONS FOR PROCEDURE: This is a 48-year-old female patient that was consulted to my office after being put on Provera for over a month due to heavy bleeding issues that she had been having for the last six months. I discussed with the patient performing a D and C. Risk of the procedure was discussed with the patient in detail. She had already undergone endometrial biopsy, which was inadequate. After all of her questions were answered, she was agreeable to proceed. Consent was obtained in the preoperative area and the patient was taken to the operating room. OPERATIVE REPORT IN DETAIL: Once in the operating room, anesthesia was found to be adequate, she placed in dorsal lithotomy position and prepped and draped in a normal sterile fashion. A timeout was performed. A weighted speculum was inserted in the patient's vagina. Right angle retractor was used to visualize the cervix, which was grasped at 12 o'clock position using a long Allis clamp. I performed a paracervical block at 3 and 9 o'clock positions using 0.25% Marcaine. Care was taken to aspirate before injecting, 5 mL were injected to each site after which there was no active bleeding noted from these sites. I then gently sound the uterine cavity, depth was found to be 8 cm. I then dilated the cervix using the Paula dilators to maximum dilatation of approximately 1 cm, at which point I performed by curetting of the endometrium. Methodically, I cleared all of the endometrium that I was able to do with gentle force after which all this tissue was collected and sent as endometrial curettings. All instruments were removed from the patient's vagina at that point. The patient tolerated the procedure well and was sent to recovery in stable condition. Lap and sponge counts were correct at the end of the procedure. Instrument counts were correct as well. Straight catheterization was performed after the procedure was complete. Job ID: [id number] DocumentID: [id number] Dictated Date: 02/13/2019 09:04:14 Outer Diameter Grinder Date: 02/13/2019 15:20:32 Dictated By: RAJI JOHNSON DO
== END 2019-02-13 10:42 | disposition home or self-care (01) ==
LOC: SDC 07:04
PROVIDERS: ATTEND Obstetrics & Gynecology
DX: N93.9 Abnormal uterine and vaginal bleeding, unspecified (principal); I25.10 Atherosclerotic heart disease of native coronary artery without angina pectoris; G43.909 Migraine, unspecified, not intractable, without status migrainosus; E66.01 Morbid (severe) obesity due to excess calories; Z79.899 Other long term (current) drug therapy; Z68.41 Body mass index [BMI] 40.0-44.9, adult; Z98.51 Tubal ligation status; Z90.89 Acquired absence of other organs; Z80.0 Family history of malignant neoplasm of digestive organs; Z82.49 Family history of ischemic heart disease and other diseases of the circulatory system; Z80.41 Family history of malignant neoplasm of ovary
CPT/HCPCS: 36415; 84703; 85025; 86850; 86900; 86901; 87081; 88305

== ENCOUNTER → 2019-11-01 | Outpatient (CLI) | payer BC, MEDICAID ==
[~2019-11-01] MED LIST changes: +IBUP-1773 PO; -MONT10TA24; +MONT10TA26; -TRAM50TA2; +TRM50T
--- NOTE | 2019-11-01 08:49 | Diagnostic Imaging Report ---
INDICATION: Palpable lump left breast. Comparisons made prior mammogram 01/29/2016. 2-D and 3-D bilateral diagnostic mammography was performed. BB marker was placed at the area of palpable abnormality in the upper outer left breast. Both breasts are heterogeneously dense, limiting the sensitivity of mammography. There is a rounded mass in the upper outer left breast at the area of palpable abnormality. This is fairly well-circumscribed and may represent a cyst. There is also a circumscribed mass in the upper outer retroareolar right breast which appears new and likely a cyst. Stable benign-appearing nodular density in the outer right breast at mid to posterior depth is noted. No malignant appearing microcalcifications are seen. Axillae are unremarkable. IMPRESSION: BI-RADS 0 Circumscribed densities bilateral breasts, as described, likely cysts. Further evaluation of these areas of ultrasound is recommended. A left-sided lesion does correspond to the area of palpable abnormality. ACR BI-RADS Category 0: Incomplete. (Needs additional imaging evaluation). Result letter will be mailed to the patient. Note: At least 10% of breast cancer is not imaged by mammography. Dictated by: Dictated on workstation # [id number]
--- NOTE | 2019-11-01 09:49 | Diagnostic Imaging Report ---
INDICATION: Left breast lump and right breast density. Correlation is made with diagnostic mammogram earlier same day. Sonographic interrogation area of palpable abnormality in the upper-outer left breast was performed. There is a simple appearing cyst at the 2:00 location, 5 cm from the nipple measuring 1.7 x 1.7 x 1.0 cm. No internal vascularity is seen. On the right, there are multiple cysts present. A cyst at the 11:00 location 2 to 3 cm from the nipple measures approximately 0.8 x 0.8 x 0.5 cm. Cyst at the 9:30 location 2 to 4 cm from the nipple is noted measuring 0.9 x 0.7 x 0.8 cm. 2nd cyst 9:30 location 2 to 4 cm from the nipple measures 1.6 x 1.0 x 1.9 cm. This likely accounts for the mammographic density. There is a benign-appearing lymph node 10:00 location 7 cm from the nipple measures 0.6 x 0.7 x 0.5 cm. No additional masses are seen. IMPRESSION: BI-RADS Category 2 Simple appearing cysts bilateral breasts, accounting for the palpable abnormality on the left and the mammographic densities on the right. No concerning sonographic findings are seen. Patient may return to routine annual screening mammography. ACR BI-RADS Category 2: Benign findings. Dictated by: Dictated on workstation # [id number]
== END ==
LOC: RAD 08:16
PROVIDERS: ATTEND Nurse Practitioner
DX: N60.02 Solitary cyst of left breast (principal); N60.01 Solitary cyst of right breast; N63.20 Unspecified lump in the left breast, unspecified quadrant
CPT/HCPCS: 76642; 77066; G0279; 77062

== ENCOUNTER 2019-11-25 02:56 | Emergency (ER) | payer BC ==
[~2019-11-25] VITALS: Ht 157 cm; Wt 107.0 kg
[2019-11-25 03:28] LABS: BASOPHILS # (AUTO) 0.1 10^3/uL (0.0-0.1); BASOPHILS % (AUTO) 1 % (0-10); EOSINOPHILS # (AUTO) 0.4 10^3/uL (0.0-0.3); EOSINOPHILS % (AUTO) 4 % (0-10); HEMATOCRIT 32 % (35-52); LYMPHOCYTES # (AUTO) 2.7 10^3/uL (1.0-4.0); LYMPHOCYTES % (AUTO) 30 % (12-44); MEAN CORPUSCULAR HEMOGLOBIN 22 pg (25-34); MEAN CORPUSCULAR HGB CONC 31 g/dL (32-36); MEAN CORPUSCULAR VOLUME 72 fL (80-99); MEAN PLATELET VOLUME 10.8 fL (9.0-12.2); MONOCYTES # (AUTO) 0.6 10^3/uL (0.0-1.0); MONOCYTES % (AUTO) 6 % (0-12); NEUTROPHILS # (AUTO) 5.4 10^3/uL (1.8-7.8); NEUTROPHILS % (AUTO) 59 % (42-75); PLATELET COUNT 288 10^3/uL (130-400); WHITE BLOOD COUNT 9.1 10^3/uL (4.3-11.0)
[2019-11-25] MEDS ORDERED: ASPIRIN 81 MG CHEW (CHILDREN'S ASA) PO ONE (03:30)
--- NOTE | 2019-11-25 03:30 | NUR ---
LATE ENTRY: Pt here with sob that worsens when she lays flat; states that onset was last night when she laid down for bed. Pt is able to speak in complete sentences and is 99% on RA. Pt appears anxious and is somewhat tearful. Pt to monitor; IV and labs drawn; Dr. Segal to room for eval.
[2019-11-25 03:37] LABS: CHLORIDE 107 MMOL/L (98-107); POTASSIUM 3.4 MMOL/L (3.6-5.0); SODIUM 138 MMOL/L (135-145)
[2019-11-25 03:38] LABS: CALCIUM 8.5 MG/DL (8.5-10.1)
[2019-11-25 03:40] LABS: GLUCOSE 111 MG/DL (70-105); TOTAL PROTEIN 6.9 GM/DL (6.4-8.2)
[2019-11-25 03:41] LABS: BILIRUBIN,TOTAL 0.2 MG/DL (0.1-1.0); CARBON DIOXIDE 21 MMOL/L (21-32)
[2019-11-25 03:42] LABS: FIBRIN DEGRADATION PRODUCTS 0.56 UG/ML (0.00-0.49); PROTHROMBIN TIME PATIENT 13.3 SEC (12.2-14.7)
[2019-11-25 03:43] LABS: ALKALINE PHOSPHATASE 76 U/L (40-136); CREATININE SERUM 0.71 MG/DL (0.60-1.30); GFR ESTIMATED > 60
[2019-11-25 03:44] LABS: BUN/CREATININE RATIO 13
[2019-11-25 03:46] LABS: ALANINE AMINOTRANSFERASE 14 U/L (0-55)
--- NOTE | 2019-11-25 03:54 | ED Respiratory ---
General Chief Complaint: Respiratory Problems Stated Complaint: SOB Nursing Triage Note: PT HERE WITH BREATHING DIFFICULTY THAT WORSENS WHEN SHE LAYS FLAT; ONSET LAST NIGHT. NO HX OF LUNG DISEASE. Source: patient Exam Limitations: no limitations History of Present Illness Date Seen by Provider: Nov 25, 2019 Time Seen by Provider: 03:07 Initial Comments Patient resents ER by private conveyance with chief complaint of since about 10:00 tonight she started getting short of breath. She has some discomfort in her chest when she takes deep breath in. She's not having any cough fever chills nausea vomiting diarrhea numbness or tingling. No history of heart disease or lung disease. She does not smoke drink or use recreational drugs. She is not having any sick contacts. She is not on oral contraceptives. Her last menstrual period was 2 weeks ago and she has her tubes tied. She denies hormonal therapy. Worsens when lying flat. Primary care by Nathalie Constantino Allergies and Home Medications Allergies Coded Allergies: NKANo Known Allergies (Unverified Allergy, Unknown, 11/01/05) Home Medications Cetirizine HCl 10 Mg Tablet, 10 MG PO DAILY, (Reported) Ibuprofen 600 Mg Tablet, 600 MG PO Q6H Prescribed by: RAJI JOHNSON on 02/13/19 0897 Patient Home Medication List Home Medication List Reviewed: Yes Review of Systems Review of Systems Constitutional: No chills, No diaphoresis, No fever, No malaise EENTM: No ear discharge, No ear pain Respiratory: No cough, No phlegm; short of breath; No wheezing Cardiovascular: see HPI, chest pain; No Hx of Intervention, No palpitations Gastrointestinal: No abdominal pain, No constipation, No nausea, No vomiting Genitourinary: No dysuria, No frequency : No Musculoskeletal: No back pain, No joint pain Skin: No pruritus, No rash All Other Systems Reviewed Negative Unless Noted: Yes Past Ddxjtad-Jxtfdt-Zdbnze Hx Patient Social History Alcohol Use: Denies Use Recreational Drug Use: No Smoking Status: Never a Smoker 2nd Hand Smoke Exposure: No Recent Foreign Travel: No Contact w/Someone Who Travel: No Recent Infectious Disease Expo: No Recent Hopitalizations: No Immunizations Up To Date Tetanus Booster (TDap): Unknown Date of Influenza Vaccine: Nov 22, 2018 Seasonal Allergies Seasonal Allergies: Yes Past Medical History Surgeries: Yes (neck fusion) Adenoidectomy, Appendectomy, Orthopedic, Tonsillectomy, Tubal Ligation Respiratory: No Cardiac: No Neurological: Yes Headaches /Migraines Reproductive Disorders: No 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 oz. 107.087141sx; 43.00 BMI Method:Stated General Appearance: WD/WN, mild distress Eyes: Bilateral Eye Normal Inspection, Bilateral Eye PERRL, Bilateral Eye EOMI HEENT: PERRL/EOMI, normal ENT inspection, pharynx normal Respiratory: lungs clear, normal breath sounds, no respiratory distress, no a ccessory muscle use Cardiovascular: normal peripheral pulses, regular rate, rhythm Gastrointestinal: normal bowel sounds, non tender, soft Extremities: normal range of motion, no pedal edema, normal capillary refill Neurologic/Psychiatric: alert, oriented x 3, other (Anxious affect) Skin: normal color, warm/dry Progress/Results/Core Measures Suspected Sepsis Recent Fever Within 48 Hours: No Infection Criteria Present: None New/Unexplained Altered Menta: No Sepsis Screen: No Definite Risk SIRS Temperature: Pulse: 69 Respiratory Rate: 20 Laboratory Tests 11/25/19 03:19: White Blood Count 9.1 Blood Pressure 172 /85 Mean: 114 Laboratory Tests 11/25/19 03:19: Creatinine 0.71, INR Comment 1.0, Platelet Count 288, Total Bilirubin 0.2 Results/Orders Lab Results Laboratory Tests Test 11/25/19 03:19 11/25/19 03:55 Range/Units White Blood Count 9.1 4.3-11.0 10^3/uL Red Blood Count 4.47 3.80-5.11 10^6/uL Hemoglobin 10.0 L 11.5-16.0 g/dL Hematocrit 32 L 35-52 % Mean Corpuscular Volume 72 L 80-99 fL Mean Corpuscular Hemoglobin 22 L 25-34 pg Mean Corpuscular Hemoglobin Concent 31 L 32-36 g/dL Red Cell Distribution Width 17.2 H 10.0-14.5 % Platelet Count 288 130-400 10^3/uL Mean Platelet Volume 10.8 9.0-12.2 fL Immature Granulocyte % (Auto) 0 % Neutrophils (%) (Auto) 59 42-75 % Lymphocytes (%) (Auto) 30 12-44 % Monocytes (%) (Auto) 6 0-12 % Eosinophils (%) (Auto) 4 0-10 % Basophils (%) (Auto) 1 0-10 % Neutrophils # (Auto) 5.4 1.8-7.8 10^3/uL Lymphocytes # (Auto) 2.7 1.0-4.0 10^3/uL Monocytes # (Auto) 0.6 0.0-1.0 10^3/uL Eosinophils # (Auto) 0.4 H 0.0-0.3 10^3/uL Basophils # (Auto) 0.1 0.0-0.1 10^3/uL Immature Granulocyte # (Auto) 0.0 0.0-0.1 10^3/uL Prothrombin Time 13.3 12.2-14.7 SEC INR Comment 1.0 0.8-1.4 Activated Partial Thromboplast Time 30 24-35 SEC D-Dimer 0.56 H 0.00-0.49 UG/ML Sodium Level 138 135-145 MMOL/L Potassium Level 3.4 L 3.6-5.0 MMOL/L Chloride Level 107 98-107 MMOL/L Carbon Dioxide Level 21 21-32 MMOL/L Anion Gap 10 5-14 MMOL/L Blood Urea Nitrogen 9 7-18 MG/DL Creatinine 0.71 0.60-1.30 MG/DL Estimat Glomerular Filtration Rate > 60 BUN/Creatinine Ratio 13 Glucose Level 111 H 70-105 MG/DL Calcium Level 8.5 8.5-10.1 MG/DL Corrected Calcium 8.5 8.5-10.1 MG/DL Total Bilirubin 0.2 0.1-1.0 MG/DL Aspartate Amino Transf (AST/SGOT) 16 5-34 U/L Alanine Aminotransferase (ALT/SGPT) 14 0-55 U/L Alkaline Phosphatase 76 40-136 U/L Troponin I < 0.028 <0.028 NG/ML C-Reactive Protein High Sensitivity 1.47 H 0.00-0.50 MG/DL B-Type Natriuretic Peptide 128.9 H <100.0 PG/ML Total Protein 6.9 6.4-8.2 GM/DL Albumin 4.0 3.2-4.5 GM/DL Salicylates Level < 5.0 L 5.0-20.0 MG/DL Blood Gas Puncture Site RT RAD Blood Gas Patient Temperature 97.7 Arterial Blood pH 7.45 H 7.37-7.43 Arterial Blood Partial Pressure CO2 30 L 35-45 MMHG Arterial Blood Partial Pressure O2 106 H 79-93 MMHG Arterial Blood HCO3 21 L 23-27 MMOL/L Arterial Blood Total CO2 21.8 21.0-31.0 MMOL/L Arterial Blood Oxygen Saturation 98 94-100 % Arterial Blood Base Excess -2.6 L -2.5-2.5 MMOL/L Nicko Test UNK Blood Gas Ventilator Setting NA Blood Gas Inspired Oxygen UNK My Orders Orders - JOELLEN,YUDY J Cbc With Automated Diff (11/25/19 03:16) Comprehensive Metabolic Panel (11/25/19 03:16) Hs C Reactive Protein (11/25/19 03:16) Troponin I (11/25/19 03:16) Continuous Ekg Monitoring (11/25/19 03:16) Ekg Tracing (11/25/19 03:16) Aspirin Chewable Tablet (Baby Aspirin Ch (11/25/19 03:30) Protime With Inr (11/25/19 03:16) Partial Thromboplastin Time (11/25/19 03:16) BNP (11/25/19 03:16) Chest 1 View, Ap/Pa Only (11/25/19 03:16) Fibrin Degradation Products (11/25/19 03:16) Arterial Blood Gas (11/25/19 03:16) Ct Angio Chest W (11/25/19 05:04) Ed Iv/Invasive Line Start (11/25/19 05:05) Lactated Ringers (Lr 1000 Ml Iv Solution (11/25/19 05:05) Salicylate (11/25/19 05:29) Iohexol Injection (Omnipaque 350 Mg/Ml 1 (11/25/19 06:00) Ns (Ivpb) (Sodium Chloride 0.9% Ivpb Bag (11/25/19 06:00) Medications Given in ED Current Medications Medications Dose Ordered Sig/Kindra Route Start Time Stop Time Status Last Admin Dose Admin Aspirin 324 mg ONCE ONCE PO 11/25/19 03:30 11/25/19 03:31 DC 11/25/19 03:29 324 MG Iohexol 100 ml ONCE ONCE IV 11/25/19 06:00 11/25/19 06:01 DC 11/25/19 06:02 100 ML Lactated Ringer's 1,000 ml @ 0 mls/hr Q0M ONCE IV 11/25/19 05:05 11/25/19 05:06 DC 11/25/19 05:13 1,000 MLS/HR Sodium Chloride 80 ml ONCE ONCE IV 11/25/19 06:00 11/25/19 06:01 DC 11/25/19 06:02 80 ML Vital Signs/I&O 11/25/19 11/25/19 11/25/19 03:15 04:15 05:00 Temp 36.4 Pulse 69 74 66 Resp 20 20 14 B/P (MAP) 172/85 (114) 157/72 (100) 155/79 (104) Pulse Ox 99 96 97 O2 Delivery Room Air Room Air Room Air Capillary Refill : Less Than 3 Seconds Blood Pressure Mean: 114 Progress Note #1: Time: 03:54 Progress Note Anxiety, pleurisy, pneumonia, rhonchus spasm etc. She has clear lung sounds and normal vital signs. Plan to get an ABG labs chest x-ray and d-dimer. Progress Note #2: Time: 05:30 Progress Note ABG demonstrates respiratory alkalosis with attempted metabolic compensation and no hypoxemia. Differential includes anxiety and pain. She's not having any significant pain except for the pleuritic chest pain probably related to her anxiety attack. We will get some salicylates levels to rule out this and a CT angiogram since the d-dimer fails to rule out she pulmonary embolism. She is still without tachycardia or hypoxia on vital signs as well as ABG so a pulmonary embolism is fairly unlikely. ECG Initial ECG Impression Date: Nov 25, 2019 Initial ECG Impression Time: 03:40 Initial ECG Rate: 68 Initial ECG Rhythm: Normal Sinus Initial ECG Intervals: Normal Initial ECG Impression: Normal Initial ECG Comparisson: No Previous ECG Available Comment Normal sinus rhythm without clinically relevant ST elevation or depression. Diagnostic Imaging Diagonstic Imaging: Xray Plain Films/CT/US/NM/MRI: chest (1v) Reviewed: Reviewed by Me Diagonstic Imaging: CT Plain Films/CT/US/NM/MRI: chest Reviewed: Reviewed Judy Ledezma Study, Reviewed by Me Transfer of Care Transfer of Care Time: 06:00 Care transferred to: Dr. Izquierdo Departure Impression Primary Impression: Panic attack Additional Impression: Pleurisy Disposition: HOME, SELF-CARE Condition: Stable Departure-Patient Inst. Decision time for Depature: 06:06 Referrals: [facility] (PCP) Primary Care Physician NATHALIE CONSTANTINO (Family) Primary Care Physician Patient Instructions: Panic Disorder (DC) Add. Discharge Instructions: Read or watch videos about cognitive behavioral techniques for panic attacks. If you're not getting good control of your panic attacks using this then you may also use one tablet of Ativan every 8 hours as necessary to help calm your body back down. Follow-up in the next 2-4 weeks with your primary care doctor to discuss management of anxiety. Return to the ER if you're having difficulty, fever, shortness of breath or ot her worrisome symptoms. All discharge instructions reviewed with patient and/or family. Voiced understanding. Work/School Note: Work Release Form Date Seen in the Emergency Department: Nov 25, 2019 Return to Work: Nov 26, 2019 Restrictions: No Restrictions YUDY CUENCA Nov 25, 2019 03:54
[2019-11-25 04:09] LABS: ABG BASE EXCESS -2.6 MMOL/L (-2.5-2.5); ABG OXYGEN SATURATION 98 % (94-100); ABG PCO2 30 MMHG (35-45); ABG PH 7.45 (7.37-7.43); ABG PO2 106 MMHG (79-93); ABG TCO2 21.8 MMOL/L (21.0-31.0)
[2019-11-25 04:12] LABS: PATIENT TEMP 97.7
[2019-11-25 04:15] VITALS: BP 157/72
--- NOTE | 2019-11-25 04:30 | NUR ---
Pt resting; states she feels better. Will continue to monitor.
[2019-11-25 05:00] VITALS: BP 155/79
[2019-11-25] MEDS ORDERED: LACTATED RINGERS 1,000 ML IV ONE (05:05)
--- NOTE | 2019-11-25 05:28 | NUR ---
PT TO CT BY W/C.
[2019-11-25] MEDS ORDERED: IOHEXOL 350 MG/ML 100 ML (OMNIPAQUE 350) VIAL IV ONE (06:00)
[2019-11-25] MEDS ORDERED: NS 100 ML (IVPB) BAG IV ONE (06:00)
[2019-11-25] MEDS ORDERED: LORA-404 PO (06:10)
[2019-11-25 06:31] VITALS: BP 197/100
--- NOTE | 2019-11-25 06:35 | NUR ---
D/C instructions/education provided; pt verbalized an understanding. Discussed monitoring b/p at home and trending for her PCP for her next visit. Pt understood and will f/u.
--- NOTE | 2019-11-25 07:22 | Diagnostic Imaging Report ---
INDICATION: Shortness of breath. Comparison made with prior examination from 07/25/2018. FINDINGS: There is cardiomegaly. There is some venous congestion. No pleural effusion or pneumothorax. Mediastinum is unremarkable. IMPRESSION: Cardiomegaly with some mild venous congestion. Dictated by: Dictated on workstation # [id number]
--- NOTE | 2019-11-25 07:30 | Diagnostic Imaging Report ---
PROCEDURE: CT angiography of the chest with contrast. TECHNIQUE: Multiple contiguous axial images were obtained through the chest after uneventful bolus administration of intravenous contrast. 3D reconstructed CTA MIP acquisitions were also performed. Auto Exposure Controls were utilized during the CT exam to meet ALARA standards for radiation dose reduction. INDICATION: Shortness of breath. FINDINGS: The thoracic aorta is normal in caliber without evidence of dissection. There are no filling defects seen within the pulmonary arteries to suggest pulmonary embolism. There are trace bilateral pleural effusions. There are no discrete pulmonary nodules, masses or infiltrates. No pathologically enlarged adenopathy in the chest. There is some questionable mild venous congestion. Visualized intra-abdominal structures are unremarkable. There are mild degenerative changes in the spine. IMPRESSION: No evidence of pulmonary embolism or aortic dissection. Trace bilateral pleural effusions and some questionable mild venous congestion. No other acute cardiac pulmonary abnormality Dictated by: Dictated on workstation # [id number]
== END 2019-11-25 06:31 | disposition home or self-care (01) ==
LOC: EDUNIT# 02:56 → ER 02:58
DX: F41.0 Panic disorder [episodic paroxysmal anxiety] (principal); R09.1 Pleurisy; G43.909 Migraine, unspecified, not intractable, without status migrainosus
CPT/HCPCS: 71045; 71275; 80053; 82805; 83880; 84484; 85025; 85379; 85610; 85730; 86141; 93005; 99285; G0480; 36415; 80329

== ENCOUNTER 2020-08-21 03:55 | Emergency (ER) | payer BC ==
[~2020-08-21] VITALS: Ht 152.4 cm; Wt 103.0 kg
[~2020-08-21 03:55] MED LIST changes: +DOXY-311 PO; -DOXY100C42 PO; +LORA-404 PO; -MONT10TA26; +MONT10TA32
[2020-08-21] MEDS ORDERED: LACTATED RINGERS 1,000 ML IV ONE (04:15)
--- NOTE | 2020-08-21 04:16 | ED General ---
General Stated Complaint: DEEPA HORSES IN BOTH LEGS Source of Information: Patient History of Present Illness Date Seen by Provider: Aug 21, 2020 Time Seen by Provider: 04:05 Initial Comments PT ARRIVES VIA POV FROM HOME C/O "DEEPA HORSES" IN BOTH LEGS FOR THE LAST 2 WEEKS--ONLY AT NIGHT STATES THE CRAMPING STARTS IN HER TOES/SOLES OF FEET AND MOVES UP TO HER CALVES. DOES NOT GO ABOVE KNEES, AND IS NOT ON TOP OF FEET OR ANTERIOR ASPECT OF LOWER LEGS/SHINS STATES THE CRAMPING STARTED TONIGHT AROUND 2129 AND SHE HAS NOT BEEN ABLE TO SLEEP STATES "I USED TO GET THEM ALL THE TIME" HAS NOT TAKEN ANYTHING FOR PAIN, BUT HAS BEEN EATING BANANAS, AND DRINKING "BODY ARMOUR" DRINKS CRAMPING IS IN BOTH LEGS EQUALLY NO SWELLING TO LEGS NO PARESTHESIAS OR MOTOR DEFICITS NO CHEST PAIN OR SHORTNESS OF BREATH NO UNUSUAL OR CHANGE IN ACTIVITY NO NEW SHOES DOES NOT TAKE ANY DAILY MEDICATIONS HAS NOT SOUGHT CARE UNTIL TONIGHT SYMPTOMS NO DIFFERENT TONIGHT PT HAS NOT HAD COVID-19 VACCINE NO KNOWN SICK CONTACTS PCP: [facility] [place] Allergies and Home Medications Allergies Coded Allergies: Sophy Known Allergies (Unverified Allergy, Unknown, 11/01/05) Home Medications Cetirizine HCl 10 Mg Tablet, 10 MG PO DAILY, (Reported) Ibuprofen 600 Mg Tablet, 600 MG PO Q6H Prescribed by: RAJI JOHNSON on 02/13/19 0827 Ketorolac Tromethamine 10 Mg Tablet, 10 MG PO Q6H Prescribed by: GOPAL LY on 08/21/20 0502 Lorazepam 0.5 Mg Tablet, 0.5 MG PO TID PRN for ANXIETY Prescribed by: YUDY CUENCA on 11/25/19 0611 Orphenadrine Citrate 100 Mg Tablet.er, 100 MG PO TID Prescribed by: GOPAL LY on 08/21/20 0502 Patient Home Medication List Home Medication List Reviewed: Yes Review of Systems Review of Systems Constitutional: no symptoms reported EENTM: no symptoms reported Respiratory: no symptoms reported Cardiovascular: no symptoms reported Gastrointestinal: no symptoms reported Genitourinary: no symptoms reported Musculoskeletal: see HPI Skin: no symptoms reported Psychiatric/Neurological: No Symptoms Reported Past Oxqaoci-Bmvwgs-Stdvbo Hx Past Med/Social Hx: Reviewed and Corrections made Patient Social History Alcohol Use: Denies Use Drug of Choice: DENIES Smoking Status: Never a Smoker 2nd Hand Smoke Exposure: No Recent Hopitalizations: No Immunizations Up To Date Tetanus Booster (TDap): Unknown Date of Influenza Vaccine: Nov 22, 2018 Seasonal Allergies Seasonal Allergies: Yes Past Medical History Surgeries: Yes (BILATERAL KNEE SCOPES; C-SPINE FUSION) Adenoidectomy, Appendectomy, Orthopedic, Tonsillectomy, Tubal Ligation Respiratory: No Cardiac: No Neurological: Yes Headaches /Migraines 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 oz. 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 Norm as Tested Skin: Normal Color, Warm/Dry; No Rash Progress/Results/Core Measures Suspected Sepsis SIRS Temperature: Pulse: Respiratory Rate: Laboratory Tests 08/21/20 04:17: White Blood Count 8.6 Blood Pressure / Mean: Laboratory Tests 08/21/20 04:17: Creatinine 0.97, Platelet Count 299, Total Bilirubin 0.4 Results/Orders Lab Results Laboratory Tests Test 08/21/20 00:41 08/21/20 04:17 Range/Units White Blood Count 8.6 4.3-11.0 10^3/uL Red Blood Count 5.62 H 3.80-5.11 10^6/uL Hemoglobin 12.9 11.5-16.0 g/dL Hematocrit 41 35-52 % Mean Corpuscular Volume 72 L 80-99 fL Mean Corpuscular Hemoglobin 23 L 25-34 pg Mean Corpuscular Hemoglobin Concent 32 32-36 g/dL Red Cell Distribution Width 16.8 H 10.0-14.5 % Platelet Count 299 130-400 10^3/uL Mean Platelet Volume 10.9 9.0-12.2 fL Immature Granulocyte % (Auto) 0 % Neutrophils (%) (Auto) 54 42-75 % Lymphocytes (%) (Auto) 33 12-44 % Monocytes (%) (Auto) 8 0-12 % Eosinophils (%) (Auto) 4 0-10 % Basophils (%) (Auto) 2 0-10 % Neutrophils # (Auto) 4.6 1.8-7.8 10^3/uL Lymphocytes # (Auto) 2.9 1.0-4.0 10^3/uL Monocytes # (Auto) 0.7 0.0-1.0 10^3/uL Eosinophils # (Auto) 0.3 0.0-0.3 10^3/uL Basophils # (Auto) 0.1 0.0-0.1 10^3/uL Immature Granulocyte # (Auto) 0.0 0.0-0.1 10^3/uL Sodium Level 134 L 135-145 MMOL/L Potassium Level 4.0 3.6-5.0 MMOL/L Chloride Level 99 98-107 MMOL/L Carbon Dioxide Level 21 21-32 MMOL/L Anion Gap 14 5-14 MMOL/L Blood Urea Nitrogen 7 7-18 MG/DL Creatinine 0.97 0.60-1.30 MG/DL Estimat Glomerular Filtration Rate > 60 BUN/Creatinine Ratio 7 Glucose Level 389 H 70-105 MG/DL Calcium Level 9.4 8.5-10.1 MG/DL Corrected Calcium 9.2 8.5-10.1 MG/DL Magnesium Level 1.7 1.6-2.4 MG/DL Total Bilirubin 0.4 0.1-1.0 MG/DL Aspartate Amino Transf (AST/SGOT) 19 5-34 U/L Alanine Aminotransferase (ALT/SGPT) 27 0-55 U/L Alkaline Phosphatase 120 40-136 U/L Total Creatine Kinase 163 29-168 U/L Creatine Kinase MB 3.0 <6.6 NG/ML Myoglobin 55.0 10.0-92.0 NG/ML Total Protein 8.0 6.4-8.2 GM/DL Albumin 4.3 3.2-4.5 GM/DL TSH [place] Testing 2.83 0.35-4.94 UIU/ML Serum Test, Qualitative NEGATIVE NEGATIVE My Orders Orders - GOPAL LY DO Ed Iv/Invasive Line Start (08/21/20 04:06) Cbc With Automated Diff (08/21/20 04:06) Comprehensive Metabolic Panel (08/21/20 04:06) Creatine Kinase (08/21/20 04:06) Creatine Kinase Mb (08/21/20 04:06) Magnesium (08/21/20 04:06) Thyroid Analyzer (08/21/20 04:06) Myoglobin Serum (08/21/20 04:06) Ed Iv/Invasive Line Start (08/21/20 04:06) Lactated Ringers (Lr 1000 Ml Iv Solution (08/21/20 04:15) Hcg,Qualitative Serum (08/21/20 04:06) Ketorolac Injection (Toradol Injection) (08/21/20 04:30) Orphenadrine Inj (Ed Only) (Norflex Inje (08/21/20 04:30) Ed Iv/Invasive Line Start (08/21/20 04:53) Ns Iv 1000 Ml (Sodium Chloride 0.9%) (08/21/20 05:00) Hemoglobin A1c (08/21/20 04:53) Medications Given in ED Current Medications Medications Dose Ordered Sig/Kindra Route Start Time Stop Time Status Last Admin Dose Admin Ketorolac Tromethamine 30 mg ONCE ONCE IV 08/21/20 04:30 08/21/20 04:31 DC 08/21/20 04:26 30 MG Lactated Ringer's 1,000 ml @ 0 mls/hr Q0M ONCE IV 08/21/20 04:15 08/21/20 04:16 DC 08/21/20 04:22 1,000 MLS/HR Orphenadrine Citrate 60 mg ONCE ONCE IV 08/21/20 04:30 08/21/20 04:31 DC 08/21/20 04:26 60 MG Vital Signs/I&O 08/21/20 08/21/20 04:13 05:47 Temp 36.8 36.6 Pulse 76 72 Resp 18 16 B/P (MAP) 149/89 (109) 140/65 Pulse Ox 95 96 O2 Delivery Room Air Room Air Capillary Refill : Progress Note : Progress Note GIVEN IV FLUIDS, TORADOL AND NORFLEX WITH SIGNIFICANT IMPROVEMENT IN SYMPTOMS DISCUSSED ELEVATED BLOOD SUGAR. PT STATES SHE HAS AN APPOINTMENT AT [facility] NEXT WEEK,AND SHE WILL DISCUSS WITH THEM PT'S WAS DIABETIC, AND DOES HAVE ACCESS TO GLUCOMETER UNTIL SHE CAN GET ONE OF HER OWN Departure Impression Primary Impression: Nocturnal leg cramps Additional Impression: Hyperglycemia Disposition: HOME, SELF-CARE Condition: Improved Departure-Patient Inst. Decision time for Depature: 04:50 Referrals: [facility] (PCP) Primary Care Physician АННА CONSTANTINO (Family) Primary Care Physician Patient Instructions: High Blood Sugar, Adult ED, Nocturnal (Nighttime) Leg Cramps (DC), Blood Glucose Monitoring Add. Discharge Instructions: MOIST HEAT TO LEGS AT 20 MINUTE INTERVALS TYLENOL NEEDED FOR LEG PAIN INCREASE YOUR WATER INTAKE FOLLOW UP WITH [facility] NEXT WEEK SCHEDULED FOR FURTHER EVALUATION Scripts Orphenadrine Citrate (Orphenadrine Citrate) 100 Mg Tablet.er 100 MG PO TID, #15 TAB Prov: GOPAL LY DO 08/21/20 Ketorolac Tromethamine (Ketorolac Tromethamine) 10 Mg Tablet 10 MG PO Q6H for Pain, #15 TAB Prov: GOPAL LY DO 08/21/20 GOPLA LY DO Aug 21, 2020 04:16
[2020-08-21 04:24] LABS: BASOPHILS # (AUTO) 0.1 10^3/uL (0.0-0.1); BASOPHILS % (AUTO) 2 % (0-10); EOSINOPHILS # (AUTO) 0.3 10^3/uL (0.0-0.3); EOSINOPHILS % (AUTO) 4 % (0-10); HEMATOCRIT 41 % (35-52); HEMOGLOBIN 12.9 g/dL (11.5-16.0); LYMPHOCYTES # (AUTO) 2.9 10^3/uL (1.0-4.0); LYMPHOCYTES % (AUTO) 33 % (12-44); MEAN CORPUSCULAR HEMOGLOBIN 23 pg (25-34); MEAN CORPUSCULAR HGB CONC 32 g/dL (32-36); MEAN CORPUSCULAR VOLUME 72 fL (80-99); MEAN PLATELET VOLUME 10.9 fL (9.0-12.2); MONOCYTES # (AUTO) 0.7 10^3/uL (0.0-1.0); MONOCYTES % (AUTO) 8 % (0-12); NEUTROPHILS # (AUTO) 4.6 10^3/uL (1.8-7.8); NEUTROPHILS % (AUTO) 54 % (42-75); PLATELET COUNT 299 10^3/uL (130-400); WHITE BLOOD COUNT 8.6 10^3/uL (4.3-11.0)
[2020-08-21] MEDS ORDERED: ORPHENADRINE 60 MG/2 ML (NORFLEX) AMP (ED ONLY) IV ONE (04:30)
[2020-08-21] MEDS ORDERED: KETOROLAC 30 MG/ML VIAL IV ONE (04:30)
[2020-08-21 04:36] LABS: ALBUMIN 4.3 GM/DL (3.2-4.5)
[2020-08-21 04:37] LABS: CHLORIDE 99 MMOL/L (98-107); SODIUM 134 MMOL/L (135-145)
[2020-08-21 04:38] LABS: CALCIUM 9.4 MG/DL (8.5-10.1)
[2020-08-21 04:39] LABS: GLUCOSE 389 MG/DL (70-105)
[2020-08-21 04:40] LABS: CARBON DIOXIDE 21 MMOL/L (21-32)
[2020-08-21 04:41] LABS: BILIRUBIN,TOTAL 0.4 MG/DL (0.1-1.0)
[2020-08-21 04:42] LABS: ALKALINE PHOSPHATASE 120 U/L (40-136); CREATININE SERUM 0.97 MG/DL (0.60-1.30); GFR ESTIMATED > 60
[2020-08-21 04:43] LABS: BUN/CREATININE RATIO 7
[2020-08-21 04:45] LABS: ALANINE AMINOTRANSFERASE 27 U/L (0-55); MAGNESIUM 1.7 MG/DL (1.6-2.4)
[2020-08-21 04:46] LABS: CREATINE KINASE 163 U/L (29-168)
[2020-08-21] MEDS ORDERED: NS IV 1000 ML 1,000 ML IV SCH (05:00)
[2020-08-21] MEDS ORDERED: ORPH100T PO (05:02)
[2020-08-21] MEDS ORDERED: KETO10TA PO (05:02)
[2020-08-21 05:06] LABS: TSH (THYROID ANALYZER) 2.83 UIU/ML (0.35-4.94)
[2020-08-21 05:47] VITALS: BP 140/65
== END 2020-08-21 05:37 | disposition home or self-care (01) ==
LOC: EDUNIT# 03:55 → ER 03:59
DX: R25.2 Cramp and spasm (principal); R73.9 Hyperglycemia, unspecified
CPT/HCPCS: 36415; 80053; 82550; 82553; 83036; 83735; 83874; 84443; 84703; 85025; 96374; 96375

== ENCOUNTER → 2020-09-27 | Outpatient (CLI) | payer BC ==
[~2020-09-27] MED LIST changes: +KETO10TA PO
--- NOTE | 2020-09-30 09:06 | Diagnostic Imaging Report ---
INDICATION: Routine screening. Comparison is made with prior mammogram from 11/01/2019 and 01/09/2016. 2-D and 3-D bilateral screening mammography was performed with CAD. Both breasts are heterogeneously dense, limiting the sensitivity of mammography. Circumscribed masses in both breasts are again noted, consistent with cysts. No spiculated mass or malignant-appearing microcalcifications are seen. Axillae are unremarkable. IMPRESSION: BI-RADS Category 2 No mammographic features suspicious for malignancy are identified. ACR BI-RADS Category 2: Benign findings. Result letter will be mailed to the patient. Note: At least 10% of breast cancer is not imaged by mammography. Dictated by: Dictated on workstation # [id number]
== END ==
LOC: RAD 09:30
PROVIDERS: ATTEND Pediatrics
DX: Z12.31 Encounter for screening mammogram for malignant neoplasm of breast (principal)
CPT/HCPCS: 77063; 77067

== ENCOUNTER 2021-04-17 20:50 | Emergency (ER) | payer BC ==
[~2021-04-17] VITALS: Ht 153 cm; Wt 103.0 kg
[~2021-04-17 20:50] MED LIST changes: +CYCL10TA25; -CYCL10TA9; +MONT-40; -MONT10TA32
[2021-04-17 20:55] VITALS: BP 159/83
[2021-04-17] MEDS ORDERED: LISI10TA25 (21:02)
[2021-04-17] MEDS ORDERED: SEMA14TA (21:02)
[2021-04-17] MEDS ORDERED: ATOR40TA70 (21:02)
[2021-04-17] MEDS ORDERED: METF-865 (21:02)
--- NOTE | 2021-04-17 21:07 | ED Lower Extremity ---
General Chief Complaint: Lower Extremity Stated Complaint: R KNEE INJURY Source: patient Exam Limitations: no limitations History of Present Illness Date Seen by Provider: Apr 17, 2021 Time Seen by Provider: 21:05 Initial Comments Twisted right knee getting out of the car earlier. Has been able to bear weight since, pain is posterior lateral. Onset: this evening Severity: moderate Pain/Injury Location: right knee Method of Injury: twisted Modifying Factors: Improves With Movement Allergies and Home Medications Allergies Coded Allergies: NKANo Known Allergies (Unverified Allergy, Unknown, 11/01/05) Patient Home Medication List Home Medication List Reviewed: Yes Atorvastatin Calcium (Atorvastatin Calcium) 40 Mg Tablet, (Reported) Entered as Reported by: SANA STANFORD on 04/17/212101 Last Action: New Order Lisinopril (Lisinopril) 10 Mg Tablet, (Reported) Entered as Reported by: SANA STANFORD on 04/17/212101 Last Action: New Order Metformin HCl (Metformin HCl ER) 500 Mg Tab.er.24h, (Reported) Entered as Reported by: SANA STAFNORD on 04/17/212101 Last Action: New Order Semaglutide (Rybelsus) 14 Mg Tablet, (Reported) Entered as Reported by: SANA STANFORD on 04/17/212101 Last Action: New Order Discontinued Medications Cetirizine HCl (Cetirizine HCl) 10 Mg Tablet, 10 MG PO DAILY, (Reported) Discontinued Reason: No Longer Taking Entered as Reported by: MING ANGUIANO on 02/08/19 1151 Last Action: Discontinued Ibuprofen (Ibuprofen) 600 Mg Tablet, 600 MG PO Q6H Discontinued Reason: No Longer Taking Prescribed by: RAJI JOHNSON on 02/13/19 0827 Last Action: Discontinued Ketorolac Tromethamine (Ketorolac Tromethamine) 10 Mg Tablet, 10 MG PO Q6H Discontinued Reason: No Longer Taking Prescribed by: GOPAL LY on 08/21/20 0502 Last Action: Discontinued Lorazepam (Ativan) 0.5 Mg Tablet, 0.5 MG PO TID PRN for ANXIETY Discontinued Reason: No Longer Taking Prescribed by: YUDY CUENCA on 11/25/19 0611 Last Action: Discontinued Orphenadrine Citrate (Orphenadrine Citrate) 100 Mg Tablet.er, 100 MG PO TID Discontinued Reason: No Longer Taking Prescribed by: GOPAL LY on 08/21/20 050 Last Action: Discontinued Review of Systems Constitutional: see HPI EENTM: see HPI Respiratory: no symptoms reported Cardiovascular: no symptoms reported Genitourinary: no symptoms reported Musculoskeletal: see HPI Skin: no symptoms reported Psychiatric/Neurological: No Symptoms Reported Past Fzbnvtu-Omebxs-Gcypph Hx Patient Social History Tobacco Use?: No Substance use?: No Alcohol Use?: No Pt feels they are or have been: No Immunizations Up To Date Tetanus Booster (TDap): Unknown COVID19 Vaccine 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 neck pain. 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 oz. 107.884203sl; 44.00 BMI Method:Stated General Appearance: WD/WN, no apparent distress Neck: non-tender, full range of motion Respiratory: no respiratory distress, no accessory muscle use Hips: bilateral hip non-tender, bilateral hip normal inspection, bilateral hip normal range of motion Legs: bilateral leg non-tender, bilateral leg normal inspection, bilateral leg normal range of motion Knees: left knee non-tender; bilateral knee normal inspection, bilateral knee normal range of motion; right knee other (tender posterior lateral. ) Ankles: bilateral ankle non-tender, bilateral ankle normal inspection, bilateral ankle normal range of motion Feet: bilateral foot non-tender, bilateral foot normal inspection, bilateral foot normal range of motion Neurologic/Psychiatric: alert, normal mood/affect, oriented x 3 Skin: normal color, warm/dry Progress/Results/Core Measures Results/Orders My Orders Orders - MOY TERRY APRN Knee, Right, 3 Views (04/17/21 21:02) Vital Signs/I&O 04/17/21 20:55 Temp 36.6 Pulse 76 Resp 16 B/P (MAP) 159/83 (108) Pulse Ox 98 O2 Delivery Room Air Departure Impression Primary Impression: Sprain of knee Disposition: 01 HOME, SELF-CARE Condition: Stable Departure-Patient Inst. Decision time for Depature: 21:07 Referrals: [facility] (PCP/Family) Primary Care Physician Patient Instructions: Knee Sprain ED MOY TERRY APRN Apr 17, 2021 21:07
--- NOTE | 2021-04-17 21:30 | Diagnostic Imaging Report ---
INDICATION: Right knee pain. Fall on ice. COMPARISON: Prior study from 09/30/2016. FINDINGS: There are tricompartmental osteoarthritic changes present within the knee, most advanced within the medial and patellofemoral compartments where there is joint space loss and small osteophytes. There may be a small joint effusion. Alignment is normal. There is no acute fracture. IMPRESSION: Osteoarthritic changes most advanced in the medial and patellofemoral compartments. There are no findings of an acute fracture or malalignment. There may be a small knee joint effusion. Dictated by: Dictated on workstation # [id number]
== END 2021-04-17 21:28 | disposition home or self-care (01) ==
LOC: EDUNIT# 20:50 → ER 20:51
DX: S83.91XA Sprain of unspecified site of right knee, initial encounter (principal); X50.1XXA Overexertion from prolonged static or awkward postures, initial encounter
CPT/HCPCS: 73562